=== PATIENT | male | born 1990 | race Caucasian/White ===

== ENCOUNTER 2016-11-15 11:11 | Inpatient (IN) | payer OTHER ==
[2016-11-15 16:40] VITALS: BMI 24.5
--- NOTE | 2016-11-15 16:40 | HP ---
COWS - Scale Resting Pulse: 2= [place] 101-120 Sweatin=Flushed/Facial Moisture Restless Observation: 3= Extraneous Movement Pupil Size: 0= Normal to Room Light Bone or Joint Aches: 2= Severe Diffuse Aches Runny Nose/ Eye Tearin= Nasal Congestion GI Upset > 30mins: 2= Nausea/Diarrhea Tremor Observation: 2= Slight Tremor Visible Yawning Observation: 0= None Anxiety or Irritability: 2=Irritable/Anxious Goose Flesh Skin: 0=Smooth Skin COWS Score: 16 Admission [facility] Chief Complaint: withdrawal sx Allergies/Adverse Reactions: Allergies Allergy/AdvReac Type Severity Reaction Status Date / Time shellfish derived Allergy Severe Difficulty Verified 11/15/16 16:30 Breathing History of Present Illness: 26 YEARS OLD MALE WITH LONG HISTORY OF HEROIN NICOTINE DEPENDENCE, DENIES MEDICAL ISSUE HAS ANXIETY IS ADMITTED TO DETOX Exam Limitations: No Limitations - Ebola screening Have you traveled outside of the country in the last 21 days: No Have you had contact with anyone from an Ebola affected area: No Have you been sick,other than usual withdrawal symptoms: No Do you have a fever: No - Review of Systems Constitutional: Chills, Loss of Appetite, Changes in sleep, Unexplained wgt Loss EENT: reports: No Symptoms Reported Respiratory: reports: No Symptoms reported Cardiac: reports: Palpitations GI: reports: Diarrhea, Nausea, Poor Appetite, Poor Fluid Intake, Vomiting, Abdominal cramping : reports: No Symptoms Reported Musculoskeletal: reports: Back Pain, Joint Pain, Muscle Pain, Neck Pain Integumentary: reports: No Symptoms Reported Neuro: reports: Tremors Endocrine: reports: No Symptoms Reported Hematology: reports: No Symptoms Reported Psychiatric: reports: Judgement Intact, Orientated x3, Anxious Other Systems: Reviewed and Negative Patient History - Patient Medical History Hx Anemia: No Hx Asthma: No Hx Chronic Obstructive Pulmonary Disease (COPD): No Hx Cancer: No Hx Cardiac Disorders: No Hx Hypertension: No Hx Hypercholesterolemia: No Hx Pacemaker: No HX Cerebrovascular Accident: No Hx Seizures: No Hx Dementia: No Hx Diabetes: No Hx Gastrointestinal Disorders: No Hx Liver Disease: No Hx Genitourinary Disorders: No Hx Sexually Transmitted Disorders: No Hx Renal Disease (ESRD): No Hx Thyroid Disease: No Hx Human Immunodeficiency Virus (HIV): No Hx Hepatitis C: No Hx Depression: Yes Hx Suicide Attempt: No Hx Bipolar Disorder: No Hx Schizophrenia: No - Patient Surgical History Past Surgical History: Yes Hx Neurologic Surgery: No Hx Cataract Extraction: No Hx Cardiac Surgery: No Hx Lung Surgery: No Hx Breast Surgery: No Hx Breast Biopsy: No Hx Abdominal Surgery: No Hx Appendectomy: No Hx Cholecystectomy: No Hx Genitourinary Surgery: No Hx Orthopedic Surgery: Yes (Fx L forearm s/p at age 13 yrs old.) Anesthesia Reaction: No - PPD History Previous Implant?: No Documented Results: Negative w/o proof Implanted On Prior R Admission?: No PPD to be Administered?: Yes - Smoking Cessation Smoking history: Current every day smoker Have you smoked in the past 12 months: Yes Aproximately how many cigarettes per day: 10 Cigars Per Day: 0 Hx Chewing Tobacco Use: No Initiated information on smoking cessation: Yes 'Breaking Loose' booklet given: 11/15/16 - Substance & Tx. History Hx Alcohol Use: No Hx Substance Use: Yes Substance Use Type: Heroin, Marijuana, Opiates, Tranquilizers - Substances Abused Heroin Route: Inhalation Frequency: Daily Amount used: 6 bags Age of first use: 25 Date of Last Use: 11/15/16 Marijuana/Hashish Route: Smoking Frequency: Daily Amount used: 1 joint Age of first use: 17 Date of Last Use: 11/13/16 Family Disease History - Family Disease History Family Disease History: Diabetes: Mother, Heart Disease: Mother, Other: Father ( NO CONTACT) Admission Physical Exam B[facility] - Vital Signs Vital Signs: Vital Signs - 24 hr 11/15/16 11:30 Temperature 97.4 F L Pulse Rate 115 H Respiratory 20 Rate Blood Pressure 155/94 - Physical General Appearance: Yes: Appropriately Dressed, Mild Distress, Thin, Tremorous, Irritable, Sweating, Anxious HEENTM: Yes: Hearing grossly Normal, Normal ENT Inspection, Normocephalic, Normal Voice Respiratory: Yes: Chest Non-Tender, Lungs Clear, Normal Breath Sounds, No Respiratory Distress, No Accessory Muscle Use Neck: Yes: Supple, Trachea in good position Breast: Yes: Breasts Symetrical Cardiology: Yes: Regular Rhythm, S1, S2, Tachycardia Abdominal: Yes: Non Tender, Soft, Increased Bowel Sounds Genitourinary: Yes: Within Normal Limits Back: Yes: Normal Inspection Musculoskeletal: Yes: full range of Motion, Gait Steady, Muscle Pain Extremities: Yes: Normal Inspection, Normal Range of Motion, Non-Tender, Tremors Neurological: Yes: Fully Oriented, Alert, Motor Strength 5/5, Normal Response, Depressed Affect Integumentary: Yes: Warm, Clammy Lymphatic: Yes: Within Normal Limits - Diagnostic (1) Opioid dependence with withdrawal Current Visit: Yes Status: Acute (2) Anxiety Current Visit: Yes Status: Suspected (3) Weight loss Current Visit: Yes Status: Acute (4) Nicotine dependence Current Visit: Yes Status: Acute Qualifiers: Nicotine product type: cigarettes Substance use status: uncomplicated Qualified Code(s): F17.210 - Nicotine dependence, cigarettes, uncomplicated Cleared for Admission S - Detox or Rehab [facility] Level of Care: Medically Managed Detox Regimen/Protocol: Methadone S Breath Alcohol Content Breath Alcohol Content: 0 Vital Signs - Vital Signs Vital Signs Refused: No Temperature: 94.4 F Temperature Source: Oral Pulse Rate: 115 Respiratory Rate: 20 Blood Pressure: 155/94 BP Location: Left Arm Blood Pressure Position: Sitting - Height Height: 5 ft 4 in - Weight Weight: 143 lb Weight Measurement Method: Standing Scale Body Mass Index (BMI): 24.5 - Bowel Function Bowel Movement: Yes Urine Drug Screen - Control Is Test Valid: Yes - Results Drug Screen Negative: No Urine Drug Screen Results: THC-Marijuana, OPI-Opiates, BZO-Benzodiazepines, TCA- Tricyclic Antidepress, OXY-Oxycodone
[2016-11-15] MEDS ORDERED: P-EPHED 60MG/TRIPROLIDI 2.5MG TABLET PO PRN (16:45)
[2016-11-15] MEDS ORDERED: diphenhydrAMINE HCL 50 MG CAPSULE PO PRN (16:45)
[2016-11-15] MEDS ORDERED: MAGNESIUM HYDROX 2400MG/30ML ORAL SUSPENSION 30 ML CUP PO PRN (16:45)
[2016-11-15] MEDS ORDERED: IBUPROFEN 400 MG TABLET (FP) PO PRN (16:45)
[2016-11-15] MEDS ORDERED: ACETAMINOPHEN 325 MG TABLET (FP) PO PRN (16:45)
[2016-11-15] MEDS ORDERED: MAG HYDROX/AL HYDROX/SIMETH 30 ML UNIT-DOSE CUP PO PRN (16:45)
[2016-11-15] MEDS ORDERED: guaiFENesin/D-METHORPHAN HB 10 ML UNIT-DOSE CUPS PO PRN (16:45)
[2016-11-15] MEDS ORDERED: MENTHOL/PHENOL 1 EACH UD MM PRN (16:45)
[2016-11-15] MEDS ORDERED: NICOTINE POLACRILEX 2 MG GUM BC PRN (16:45)
[2016-11-15] MEDS ORDERED: MAGNESIUM CITRATE 300 ML BOTTLE PO PRN (16:45)
[2016-11-15] MEDS ORDERED: LOPERAMIDE HCL 2 MG CAPSULE PO PRN (16:45)
[2016-11-15] MEDS ORDERED: cloNIDine HCL 0.1 MG TABLET PO PRN (16:48)
[2016-11-15] MEDS ORDERED: METHADONE HCL 10 MG TABLET (FOR DETOX USE ONLY) PO ONE ×2 (17:00→23:00)
[2016-11-15] MEDS: diazePAM 5 MG TABLET PO PRN ×2 (17:55→22:14)
[2016-11-15] MEDS: THIAMINE HCL 100 MG TABLET (FP) PO SCH (22:14)
[2016-11-16] MEDS: diazePAM 5 MG TABLET PO PRN ×5 (03:29→21:45)
[2016-11-16] MEDS ORDERED: METHADONE HCL 10 MG TABLET (FOR DETOX USE ONLY) PO ONE (10:00)
[2016-11-16] MEDS: PRENATAL VITAMINS W/ FOLIC ACID TABLET (FP) PO SCH (10:08)
[2016-11-16] MEDS: NICOTINE 14 MG/24 HOURS TOPICAL PATCH TD SCH (10:08)
[2016-11-16 10:38] LABS: URINE APPEARANCE SLCLOUDY; URINE BILIRUBIN NEGATIVE (NEGATIVE); URINE BLOOD NEGATIVE (NEGATIVE); URINE COLOR LTYELLOW; URINE GLUCOSE (UA) NEGATIVE (NEGATIVE); URINE KETONE NEGATIVE (NEGATIVE); URINE LEUK ESTERASE NEGATIVE (NEGATIVE); URINE NITRITE NEGATIVE (NEGATIVE); URINE PROTEIN NEGATIVE (NEGATIVE); URINE UROBILINOGEN 2.0 E.U/dl E.U./dl (0.2-1.0)
[2016-11-16 10:39] LABS: MCH 28.9 pg (25.7-33.7); MCHC 33.3 g/dl (32.0-35.9); MEAN CELL VOLUME 86.7 fl (80-96); MEAN PLT VOLUME 8.7 fl (7.5-11.1); PLATELET COUNT 220 K/MM3 (134-434); RDW 13.1 % (11.9-15.9); WHITE BLOOD COUNT 7.6 K/mm3 (4.0-10.0)
[2016-11-16 10:49] LABS: ALBUMIN 4.4 g/dl (3.4-5.0)
[2016-11-16 10:55] LABS: ALK PHOS 87 U/L (45-117); ANION GAP 10 (8-16); BILIRUBIN,TOTAL 0.7 mg/dL (0.2-1.0); CALCIUM 9.3 mg/dL (8.5-10.1); CO2 27 mmol/L (21-32); CREATININE 1.1 mg/dL (0.7-1.3); GLUCOSE,RANDOM 152 mg/dL (74-106); SGOT/AST 12 U/L (15-37); SGPT/ALT 17 U/L (12-78); TOT PROT 7.9 g/dl (6.4-8.2)
--- NOTE | 2016-11-16 11:49 | CONSULT ---
[facility] Psychiatric Consult - Data Date of interview: 11/16/16 Admission source: [facility] Identifying data: First admission to [facility] for this 26 y/o male seeking detox treatment on for heroin and marijuana dependence.Patient is single,a father of one,domiciled and employed. Substance Abuse History: - Smoking Cessation. Smoking history: Current every day smoker. Have you smoked in the past 12 months: Yes. Aproximately how many cigarettes per day: 10. Cigars Per Day: 0. Hx Chewing Tobacco Use: No. Initiated information on smoking cessation: Yes. 'Breaking Loose' booklet given : 11/15/16. - Substance & Tx. History. Hx Alcohol Use: No. Hx Substance Use: Yes. Substance Use Type: Heroin, Marijuana, Opiates, Tranquilizers. - Substances Abused. Heroin. Route: Inhalation. Frequency: Daily. Amount used: 6 bags. Age of first use: 25. Date of Last Use: 11/15/16. Marijuana/ Hashish. Route: Smoking. Frequency: Daily. Amount used: 1 joint. Age of first use: 17. Date of Last Use: 11/13/16. Patient confirmed. Medical History: Patient endorses good general health. Psychiatric History: Patient denies. Physical/Sexual Abuse/Trauma History: Patient denies. Additional Comment: Urine Drug Screen Results: THC-Marijuana, OPI-Opiates, BZO- Benzodiazepines, TCA-Tricyclic Antidepress, OXY-Oxycodone Mental Status Exam - Mental Status Exam Alert and Oriented to: Time, Place, Person Cognitive Function: Good Patient Appearance: Well Groomed Mood: Nervous, Hopeful Affect: Appropriate, Normal Range Patient Behavior: Fatigued, Appropriate, Cooperative Speech Pattern: Clear, Appropriate Voice Loudness: Normal Thought Process: Goal Oriented Thought Disorder: Not Present Hallucinations: Denies Suicidal Ideation: Denies Homicidal Ideation: Denies Insight/Judgement: Fair Sleep: Poorly, Difficulty falling asleep (patient is requesting zolpidem) Appetite: Good Muscle strength/Tone: Normal Gait/Station: Normal Psychiatric Findings - Problem List (Wideman 1, 2,3) (1) Opioid dependence with withdrawal Current Visit: Yes Status: Acute (2) Nicotine dependence Current Visit: Yes Status: Acute Qualifiers: Nicotine product type: cigarettes Substance use status: uncomplicated Qualified Code(s): F17.210 - Nicotine dependence, cigarettes, uncomplicated (3) Cannabis dependence Current Visit: Yes Status: Acute (4) Insomnia Current Visit: Yes Status: Acute - Initial Treatment Plan Initial Treatment Plan: Psychoeducation.Detoxification.Zolpidem 10 mg po hs prn (only for duration of detox course).Patient is made aware of the risk of parasomnias.He agrees with careplan.Observation.
[2016-11-16] MEDS ORDERED: ZOLPIDEM TARTRATE 5 MG TABLET PO PRN (11:55)
--- NOTE | 2016-11-16 19:42 | PN ---
S Progress Note Note: patient did not want to complete treatment,signed release ama,did not want to wait
--- NOTE | 2016-11-16 19:45 | DS ---
[facility] Detox Discharge Summary Admission Date: 11/15/16 Discharge Date: 11/16/16 - History Present History: Cannabis Dependence, Opioid Dependence Additional Comments: patient did not want to comlete treatment,signed release ama,did not want to wait Pertinent Past History: nicotine dependence - Physical Exam Results Vital Signs: Vital Signs Temperature 99.2 F 11/16/16 14:51 Pulse Rate 70 11/16/16 14:51 Respiratory Rate 18 11/16/16 14:51 Blood Pressure 133/91 11/16/16 14:51 O2 Sat by Pulse Oximetry (%) Pertinent Admission Physical Exam Findings: withdrawal symptom - Medication Discharge Medications: Ambulatory Orders NK [No Known Home Medication] 11/15/16 - AMA Did Patient Leave Against Medical Advice: Yes
[2016-11-16] MEDS: THIAMINE HCL 100 MG TABLET (FP) PO SCH (21:45)
[2016-11-17] MEDS: diazePAM 5 MG TABLET PO PRN (05:08)
[2016-11-17] MEDS ORDERED: METHADONE HCL 5 MG TABLET (FOR DETOX USE ONLY) PO ONE (10:00)
[2016-11-17] MEDS: PRENATAL VITAMINS W/ FOLIC ACID TABLET (FP) PO SCH (10:09)
[2016-11-17] MEDS: NICOTINE 14 MG/24 HOURS TOPICAL PATCH TD SCH (10:09)
[2016-11-17 11:02] VITALS: BP 128/79; PULSE 73; TEMP 96.8
--- NOTE | 2016-11-17 12:34 | PN ---
[facility]I Progress Note Note: ADDENDUM PATIENT CHANGED HIS MIND TO STAY AFTER SIGNED RELEASE AMCatrachito YESTERDAY ON 11/16/16
--- NOTE | 2016-11-17 12:48 | DS ---
[facility] Detox Discharge Summary Admission Date: 11/15/16 Discharge Date: 11/17/16 - History Present History: Cannabis Dependence, Opioid Dependence Pertinent Past History: Denies - Physical Exam Results Vital Signs: Vital Signs Temperature 96.8 F L 11/17/16 11:02 Pulse Rate 73 11/17/16 11:02 Respiratory Rate 20 11/17/16 11:02 Blood Pressure 128/79 11/17/16 11:02 O2 Sat by Pulse Oximetry (%) Pertinent Admission Physical Exam Findings: Withdrawal symptoms Laboratory Tests 11/16/16 11/16/16 11/16/16 06:00 06:00 06:00 WBC 7.6 RBC 4.96 Hgb 14.3 Hct 43.0 MCV 86.7 MCHC 33.3 RDW 13.1 Plt Count 220 MPV 8.7 Sodium 140 Potassium 4.0 Chloride 103 Carbon Dioxide 27 Anion Gap 10 BUN 23 H Creatinine 1.1 Creat Clearance w eGFR > 60 Random Glucose 152 H Calcium 9.3 Total Bilirubin 0.7 AST 12 L ALT 17 Alkaline Phosphatase 87 Total Protein 7.9 Albumin 4.4 Urine Color Urine Appearance Urine pH Ur Specific [place] Urine Protein Urine Glucose (UA) Urine Ketones Urine Blood Urine Nitrite Urine Bilirubin Urine Urobilinogen Ur Leukocyte Esterase RPR Titer Nonreactive 11/16/16 07:30 WBC RBC Hgb Hct MCV MCHC RDW Plt Count MPV Sodium Potassium Chloride Carbon Dioxide Anion Gap BUN Creatinine Creat Clearance w eGFR Random Glucose Calcium Total Bilirubin AST ALT Alkaline Phosphatase Total Protein Albumin Urine Color Ltyellow Urine Appearance Slcloudy Urine pH 7.0 Ur Specific [place] 1.015 Urine Protein Negative Urine Glucose (UA) Negative Urine Ketones Negative Urine Blood Negative Urine Nitrite Negative Urine Bilirubin Negative Urine Urobilinogen 2.0 e.u/dl Ur Leukocyte Esterase Negative RPR Titer Labs noted: azotemia and hyperglycemia noted - Medication Discharge Medications: Ambulatory Orders NK [No Known Home Medication] 11/15/16 - Diagnosis (1) Cannabis dependence Status: Acute (2) Opioid dependence with withdrawal Status: Acute - AMA Did Patient Leave Against Medical Advice: Yes (refuse workup for hyperglycemia, encourage to drink more water b/c azotemia)
[2016-11-18] MEDS ORDERED: METHADONE HCL 5 MG TABLET (FOR DETOX USE ONLY) PO ONE (10:00)
[2016-11-19] MEDS ORDERED: METHADONE HCL 10 MG TABLET (FOR DETOX USE ONLY) PO ONE (10:00)
[2016-11-20] MEDS ORDERED: METHADONE HCL 5 MG TABLET (FOR DETOX USE ONLY) PO ONE (06:00)
--- NOTE | 2016-11-20 09:48 | EKG ---
Test Reason : Blood Pressure : / mmHG Vent. Rate : 064 BPM Atrial Rate : 064 BPM P-R Int : 138 ms QRS Dur : 096 ms QT Int : 408 ms P-R-T Axes : 000 070 051 degrees QTc Int : 420 ms NORMAL SINUS RHYTHM RSR' OR QR PATTERN IN V1 SUGGESTS RIGHT VENTRICULAR CONDUCTION DELAY BORDERLINE ECG NO PREVIOUS ECGS AVAILABLE Confirmed by JEAN CARLOS FERNANDEZ, NEDRA ([id number]) on 11/20/2016 9:47:59 AM Referred By: Mike Lieberman Confirmed By:NEDRA EVANGELISTA MD
== END 2016-11-17 10:55 | disposition left against medical advice (07) | DRG 770 ==
LOC: YASAS 11:11 → Y3N 16:42
PROVIDERS: ADMIT Internal Medicine; ATTEND Internal Medicine
PROC: HZ2ZZZZ Detoxification Services for Substance Abuse Treatment (ICD-10-PCS; principal; 2016-11-15)
DX: F11.23 Opioid dependence with withdrawal (principal); F12.20 Cannabis dependence, uncomplicated; F17.210 Nicotine dependence, cigarettes, uncomplicated; F41.9 Anxiety disorder, unspecified; G47.00 Insomnia, unspecified; R00.0 Tachycardia, unspecified; Z87.898 Personal history of other specified conditions
CPT/HCPCS: 36415; 80053; 81003; 85027; 86593; 86803; 93005; 93010

== ENCOUNTER 2017-01-26 10:27 | Inpatient (IN) | payer OTHER ==
[2017-01-26 10:56] VITALS: BMI 23.4
--- NOTE | 2017-01-26 11:07 | HP ---
COWS - Scale Resting Pulse: 0= [place] 80 or Below Sweatin= Chills/Flushing Restless Observation: 1= Difficult to Sit Still Pupil Size: 1= Pupils >than Normal Bone or Joint Aches: 2= Severe Diffuse Aches Runny Nose/ Eye Tearin= Runny Nose/Eyes GI Upset > 30mins: 3= Vomiting/Diarrhea Tremor Observation: 1= Tremor [place], Not Seen Yawning Observation: 1= 1-2x During Session Anxiety or Irritability: 4=Extreme Anxiety Goose Flesh Skin: 3=Piloerection COWS Score: 19 Admission ROS BHS - HPI Chief Complaint: "I want to better myself. I recently lost my job because of my drug use." Pt. is here to Detox from Heroin. Allergies/Adverse Reactions: Allergies Allergy/AdvReac Type Severity Reaction Status Date / Time shellfish derived Allergy Severe Difficulty Verified 11/15/16 16:30 Breathing No Known Drug Allergies Allergy Verified 11/15/16 17:05 History of Present Illness: Pt. is a 26 YO male here to Detox from Heroin. Pt. has had 1 previous Detox admission at [facility] approx. 3 months ago. Exam Limitations: No Limitations - Ebola screening Have you traveled outside of the country in the last 21 days: No Have you had contact with anyone from an Ebola affected area: No Have you been sick,other than usual withdrawal symptoms: No Do you have a fever: No - Review of Systems Constitutional: Diaphoresis, Loss of Appetite, Malaise, Night Sweats, Changes in sleep, Unexplained wgt Loss (Lost Approx. 12 lbs. over the last 4-5 months.) EENT: reports: Blurred Vision Respiratory: reports: No Symptoms reported Cardiac: reports: Palpitations GI: reports: Constipated, Diarrhea, Nausea, Poor Appetite, Vomiting, Abdominal cramping : reports: No Symptoms Reported Musculoskeletal: reports: Back Pain, Muscle Pain, Neck Pain, Joint Stiffness Integumentary: reports: No Symptoms Reported Neuro: reports: Headache, Tremors Endocrine: reports: No Symptoms Reported Hematology: reports: No Symptoms Reported Psychiatric: reports: Judgement Intact, Mood/Affect Appropiate, Orientated x3, Anxious, Depressed Other Systems: Reviewed and Negative Patient History - Patient Medical History Hx Anemia: No Hx Asthma: No Hx Chronic Obstructive Pulmonary Disease (COPD): No Hx Cancer: No Hx Cardiac Disorders: No Hx Congestive Heart Failure: No Hx Hypertension: No Hx Hypercholesterolemia: No Hx Pacemaker: No HX Cerebrovascular Accident: No Hx Seizures: No Hx Dementia: No Hx Diabetes: No Hx Gastrointestinal Disorders: No Hx Liver Disease: No Hx Genitourinary Disorders: No Hx Sexually Transmitted Disorders: No Hx Renal Disease (ESRD): No Hx Thyroid Disease: No Hx Human Immunodeficiency Virus (HIV): No (Last Tested: Approx. 5 years ago: NEGATIVE.) Hx Hepatitis C: No (Last Tested: Approx. 5 years ago: NEGATIVE.) Hx Depression: Yes (No Previous Treatment.) Hx Suicide Attempt: No (PATIENT DENIES CURRENT SI / HI.) Hx Bipolar Disorder: No Hx Schizophrenia: No - Patient Surgical History Past Surgical History: Yes Hx Neurologic Surgery: No Hx Cataract Extraction: No Hx Cardiac Surgery: No Hx Lung Surgery: No Hx Breast Surgery: No Hx Breast Biopsy: No Hx Abdominal Surgery: No Hx Appendectomy: No Hx Cholecystectomy: No Hx Genitourinary Surgery: No Hx Orthopedic Surgery: Yes (Fx L forearm s/p at age 13 yrs old.) Anesthesia Reaction: No - PPD History Previous Implant?: Yes Documented Results: Negative w/o proof Implanted On Prior [facility] Admission?: Yes Date: 11/17/16 PPD to be Administered?: Yes - Reproductive History Patient is a Female of Child Bearing Age (11 -55 yrs old): No (PATIENT IS MALE.) - Smoking Cessation Smoking history: Current every day smoker Have you smoked in the past 12 months: Yes Aproximately how many cigarettes per day: 10 Cigars Per Day: 0 Hx Chewing Tobacco Use: No Initiated information on smoking cessation: Yes 'Breaking Loose' booklet given: 01/26/17 (GIVEN ON UNIT.) - Substance & Tx. History Hx Alcohol Use: No Hx Substance Use: Yes Substance Use Type: Heroin, Marijuana, Tranquilizers Hx Substance Use Treatment: Yes (1 Previous Detox admission at [facility].) - Substances Abused Heroin Route: Inhalation Frequency: Daily Amount used: 1 Bundle. Age of first use: 22 Date of Last Use: 01/25/17 Alprazolam (Xanax) Route: Oral Frequency: Daily Amount used: 1 MG Age of first use: 26 (Using for approx. 1 month.) Date of Last Use: 01/24/17 Marijuana/Hashish Route: Smoking Frequency: 3-6 times per week Amount used: 2 Joints. Age of first use: 21 Date of Last Use: 01/22/17 Family Disease History - Family Disease History Family Disease History: Diabetes: Mother, Heart Disease: Mother, Other: Father ( NO CONTACT) Admission Physical Exam [facility] - Vital Signs Vital Signs: Vital Signs - 24 hr 01/26/17 10:54 Temperature 97.7 F Pulse Rate 68 Respiratory 18 Rate Blood Pressure 128/75 - Physical General Appearance: Yes: Nourished, Appropriately Dressed, Moderate Distress, Anxious HEENTM: Yes: Hearing grossly Normal, Normocephalic, Normal Voice, DAVON, Pharynx Normal Respiratory: Yes: Chest Non-Tender, Lungs Clear, No Respiratory Distress Neck: Yes: No masses,lesions,Nodules, Supple, Trachea in good position Breast: Yes: Breast Exam Deferred Cardiology: Yes: Regular Rhythm, Regular Rate, S1, S2 Abdominal: Yes: Normal Bowel Sounds, Non Tender, Flat, Soft Genitourinary: Yes: Within Normal Limits Back: Yes: Decreased Range of Motion Musculoskeletal: Yes: Gait Steady, Joint Stiffness, Muscle Pain Extremities: Yes: Tremors Neurological: Yes: Fully Oriented, Alert, Normal Mood/Affect, Normal Response Integumentary: Yes: Normal Color, Dry, Warm Lymphatic: Yes: Within Normal Limits - Diagnostic (1) Cannabis dependence Current Visit: Yes Status: Acute (2) Nicotine dependence Current Visit: Yes Status: Chronic Qualifiers: Nicotine product type: cigarettes Substance use status: uncomplicated Qualified Code(s): F17.210 - Nicotine dependence, cigarettes, uncomplicated (3) Opioid dependence with withdrawal Current Visit: Yes Status: Acute (4) Anxiety Current Visit: Yes Status: Acute (5) Sedative/hypnotic withdrawal without complication Current Visit: Yes Status: Acute Cleared for Admission [facility] - Detox or Rehab [facility] Level of Care: Medically Managed (PATIENT ADVISED TO FOLLOW-UP WITH [facility] DEVELOPER / REHAB MEDICAL PROVIDER FOR GENERAL MEDICAL ASSESSMENT AFTER DISCHARGE FROM DETOX.) Detox Regimen/Protocol: Methadone [facility] Breath Alcohol Content Breath Alcohol Content: 0 Urine Drug Screen - Results Urine Drug Screen Results: THC-Marijuana, OPI-Opiates, BZO-Benzodiazepines
[2017-01-26] MEDS ORDERED: MAG HYDROX/AL HYDROX/SIMETH 30 ML UNIT-DOSE CUP PO PRN (11:45)
[2017-01-26] MEDS ORDERED: ACETAMINOPHEN 325 MG TABLET (FP) PO PRN (11:45)
[2017-01-26] MEDS ORDERED: MAGNESIUM HYDROX 2400MG/30ML ORAL SUSPENSION 30 ML CUP PO PRN (11:45)
[2017-01-26] MEDS ORDERED: METHADONE HCL 10 MG TABLET (FOR DETOX USE ONLY) PO ONE ×2 (11:45→23:00)
[2017-01-26] MEDS ORDERED: MENTHOL/PHENOL 1 EACH UD MM PRN (11:45)
[2017-01-26] MEDS ORDERED: LOPERAMIDE HCL 2 MG CAPSULE PO PRN (11:45)
[2017-01-26] MEDS ORDERED: guaiFENesin/D-METHORPHAN HB 10 ML UNIT-DOSE CUPS PO PRN (11:45)
[2017-01-26] MEDS ORDERED: P-EPHED 60MG/TRIPROLIDI 2.5MG TABLET PO PRN (11:45)
[2017-01-26] MEDS ORDERED: MAGNESIUM CITRATE 300 ML BOTTLE PO PRN (11:45)
[2017-01-26] MEDS ORDERED: IBUPROFEN 400 MG TABLET (FP) PO PRN (11:45)
[2017-01-26] MEDS: diazePAM 5 MG TABLET PO PRN ×2 (13:09→19:24)
[2017-01-26] MEDS: NICOTINE 21 MG/24 HOURS TOPICAL PATCH TD SCH (13:13)
[2017-01-26 17:36] LABS: URINE APPEARANCE CLEAR; URINE BILIRUBIN NEGATIVE (NEGATIVE); URINE BLOOD NEGATIVE (NEGATIVE); URINE COLOR YELLOW; URINE GLUCOSE (UA) NEGATIVE (NEGATIVE); URINE KETONE NEGATIVE (NEGATIVE); URINE LEUK ESTERASE NEGATIVE (NEGATIVE); URINE NITRITE NEGATIVE (NEGATIVE); URINE PROTEIN NEGATIVE (NEGATIVE); URINE UROBILINOGEN NEGATIVE E.U./dl (0.2-1.0)
[2017-01-26] MEDS: THIAMINE HCL 100 MG TABLET (FP) PO SCH (22:24)
[2017-01-26] MEDS: diphenhydrAMINE HCL 50 MG CAPSULE PO PRN (22:25)
[2017-01-27] MEDS: diazePAM 5 MG TABLET PO PRN ×4 (05:26→19:16)
[2017-01-27] MEDS ORDERED: METHADONE HCL 10 MG TABLET (FOR DETOX USE ONLY) PO ONE (10:00)
[2017-01-27 10:05] LABS: MCH 28.9 pg (25.7-33.7); MCHC 33.1 g/dl (32.0-35.9); MEAN CELL VOLUME 87.4 fl (80-96); MEAN PLT VOLUME 8.3 fl (7.5-11.1); PLATELET COUNT 227 K/MM3 (134-434); RDW 13.4 % (11.9-15.9); WHITE BLOOD COUNT 8.9 K/mm3 (4.0-10.0)
--- NOTE | 2017-01-27 10:36 | PN ---
[facility] COWS - Scale Resting Pulse: 0= [place] 80 or Below Sweatin=Flushed/Facial Moisture Restless Observation: 1= Difficult to Sit Still Pupil Size: 0= Normal to Room Light Bone or Joint Aches: 1= Mild Discomfort Runny Nose/ Eye Tearin= Runny Nose/Eyes GI Upset > 30mins: 2= Nausea/Diarrhea Tremor Observation of Outstretched Hands: 2= Slight Tremor Visible Yawning Observation: 1= 1-2x During Session Anxiety or Irritability: 2=Irritable/Anxious Goose Flesh Skin: 0=Smooth Skin COWS Score: 13 BHS Progress Note (SOAP) Subjective: Anxiety,sweating,muscle aches,restless Objective: 01/27/17 10:35 Vital Signs - 8 hr 01/27/17 01/27/17 01/27/17 03:40 06:30 10:00 Temperature 97.2 F L 96.8 F L Pulse Rate 58 L 71 Respiratory 18 18 18 Rate Blood Pressure 124/90 129/85 Laboratory Last Values WBC 8.9 K/mm3 (4.0-10.0) 01/27/17 07:40 Corrected WBC (auto) 8.90 K/mm3 01/27/17 07:40 RBC 4.79 M/mm3 (4.00-5.60) 01/27/17 07:40 Hgb 13.8 GM/dL (11.7-16.9) 01/27/17 07:40 Hct 41.9 % (35.4-49) 01/27/17 07:40 MCV 87.4 fl (80-96) 01/27/17 07:40 MCHC 33.1 g/dl (32.0-35.9) 01/27/17 07:40 RDW 13.4 % (11.9-15.9) 01/27/17 07:40 Plt Count 227 K/MM3 (134-434) 01/27/17 07:40 MPV 8.3 fl (7.5-11.1) 01/27/17 07:40 Neutrophils % Cancelled 01/27/17 07:40 Lymphocytes % Cancelled 01/27/17 07:40 Monocytes % Cancelled 01/27/17 07:40 Eosinophils % Cancelled 01/27/17 07:40 Basophils % Cancelled 01/27/17 07:40 Band Neutrophils Cancelled 01/27/17 07:40 Metamyelocytes Cancelled 01/27/17 07:40 Myelocytes Cancelled 01/27/17 07:40 Promyelocytes Cancelled 01/27/17 07:40 Nucleated RBCs Cancelled 01/27/17 07:40 Hypersegmented Neuts Cancelled 01/27/17 07:40 Plasmacytoid Lymphs Cancelled 01/27/17 07:40 Reactive Lymphocytes Cancelled 01/27/17 07:40 Blast Cells Cancelled 01/27/17 07:40 Plasma Cells Cancelled 01/27/17 07:40 Smudge Cells Cancelled 01/27/17 07:40 Other Cell Type Cancelled 01/27/17 07:40 Toxic Granulation Cancelled 01/27/17 07:40 Dohle Bodies Cancelled 01/27/17 07:40 Ewa Rods Cancelled 01/27/17 07:40 Polychromasia Cancelled 01/27/17 07:40 Hypochromic-Microcytic Cancelled 01/27/17 07:40 Poikilocytosis Cancelled 01/27/17 07:40 Basophilic Stippling Cancelled 01/27/17 07:40 Anisocytosis Cancelled 01/27/17 07:40 Microcytosis Cancelled 01/27/17 07:40 Macrocytosis Cancelled 01/27/17 07:40 Spherocytes Cancelled 01/27/17 07:40 Siderocytes Cancelled 01/27/17 07:40 Sickle Cells Cancelled 01/27/17 07:40 Target Cells Cancelled 01/27/17 07:40 Tear Drop Cells Cancelled 01/27/17 07:40 Ovalocytes Cancelled 01/27/17 07:40 Stomatocytes Cancelled 01/27/17 07:40 Helmet Cells Cancelled 01/27/17 07:40 Gomez-C[place] Bodies Cancelled 01/27/17 07:40 [place] Rings Cancelled 01/27/17 07:40 [place] Cells Cancelled 01/27/17 07:40 Acanthocytes (Spur) Cancelled 01/27/17 07:40 Rouleaux Cancelled 01/27/17 07:40 Fragmented RBCs Cancelled 01/27/17 07:40 Schistocytes Cancelled 01/27/17 07:40 Morphology Comment Cancelled 01/27/17 07:40 Urine Color Yellow 01/26/17 Unknown Urine Appearance Clear 01/26/17 Unknown Urine pH 5.0 (5.0-8.0) D 01/26/17 Unknown Ur Specific [place] 1.025 (1.001-1.035) 01/26/17 Unknown Urine Protein Negative (NEGATIVE) 01/26/17 Unknown Urine Glucose (UA) Negative (NEGATIVE) 01/26/17 Unknown Urine Ketones Negative (NEGATIVE) 01/26/17 Unknown Urine Blood Negative (NEGATIVE) 01/26/17 Unknown Urine Nitrite Negative (NEGATIVE) 01/26/17 Unknown Urine Bilirubin Negative (NEGATIVE) 01/26/17 Unknown Urine Urobilinogen Negative E.U./dl (0.2-1.0) 01/26/17 Unknown Ur Leukocyte Esterase Negative (NEGATIVE) 01/26/17 Unknown Fluid Tot Cell Count Cancelled 01/27/17 07:40 labs noted Assessment: 01/27/17 10:35 Withdrawal sx. Plan: Continue detox
[2017-01-27 10:37] LABS: ALBUMIN 3.7 g/dl (3.4-5.0); ANION GAP 8 (8-16); CALCIUM 8.8 mg/dL (8.5-10.1); CO2 29 mmol/L (21-32); CREATININE 0.8 mg/dL (0.7-1.3); GLUCOSE,RANDOM 96 mg/dL (74-106); SGOT/AST 19 U/L (15-37); SGPT/ALT 22 U/L (12-78); TOT PROT 6.5 g/dl (6.4-8.2)
[2017-01-27 10:41] LABS: ALK PHOS 81 U/L (45-117); BILIRUBIN,TOTAL 0.2 mg/dL (0.2-1.0)
[2017-01-27] MEDS: PRENATAL VITAMINS W/ FOLIC ACID TABLET (FP) PO SCH (10:45)
[2017-01-27] MEDS: NICOTINE 21 MG/24 HOURS TOPICAL PATCH TD SCH (10:45)
[2017-01-27 11:48] LABS: HIV 1 AGp24 NEGATIVE
[2017-01-27 11:49] LABS: HIV 1 & 2 AB NEGATIVE
[2017-01-27] MEDS: CYCLOBENZAPRINE HCL 10 MG TABLET (FP) PO SCH ×2 (13:12→22:50)
[2017-01-27] MEDS: THIAMINE HCL 100 MG TABLET (FP) PO SCH ×2 (22:30→22:50)
[2017-01-27] MEDS: hydrOXYzine PAMOATE 50 MG CAPSULE (FP) PO PRN (22:52)
[2017-01-28] MEDS: CYCLOBENZAPRINE HCL 10 MG TABLET (FP) PO SCH ×3 (05:37→22:50)
[2017-01-28] MEDS: diazePAM 5 MG TABLET PO PRN ×4 (05:37→22:49)
[2017-01-28] MEDS ORDERED: METHADONE HCL 5 MG TABLET (FOR DETOX USE ONLY) PO ONE (10:00)
[2017-01-28] MEDS: NICOTINE 21 MG/24 HOURS TOPICAL PATCH TD SCH (10:32)
[2017-01-28] MEDS: PRENATAL VITAMINS W/ FOLIC ACID TABLET (FP) PO SCH (10:32)
--- NOTE | 2017-01-28 11:40 | PN ---
S COWS - Scale Resting Pulse: 0= [place] 80 or Below Sweatin= Chills/Flushing Restless Observation: 3= Extraneous Movement Pupil Size: 2= Moderately Dilated Bone or Joint Aches: 4=Acute Joint/Muscle Pain Runny Nose/ Eye Tearin= Nasal Congestion GI Upset > 30mins: 2= Nausea/Diarrhea Tremor Observation of Outstretched Hands: 1= Tremor [place], Not Seen Yawning Observation: 1= 1-2x During Session Anxiety or Irritability: 2=Irritable/Anxious Goose Flesh Skin: 0=Smooth Skin COWS Score: 17 S Progress Note (SOAP) Subjective: ANXIETY,IRRITABILITY,BACK ACHE,NAUSEA,SWEATS,INTERMITTENT SLEEP,"DEPRESSION/ ANXIETY". Objective: 01/28/17 11:39 Vital Signs Temperature 97.2 F L 01/28/17 10:10 Pulse Rate 57 L 01/28/17 10:10 Respiratory Rate 18 01/28/17 10:10 Blood Pressure 117/62 01/28/17 10:10 O2 Sat by Pulse Oximetry (%) Laboratory Last Values WBC 8.9 K/mm3 (4.0-10.0) 01/27/17 07:40 Corrected WBC (auto) 8.90 K/mm3 01/27/17 07:40 RBC 4.79 M/mm3 (4.00-5.60) 01/27/17 07:40 Hgb 13.8 GM/dL (11.7-16.9) 01/27/17 07:40 Hct 41.9 % (35.4-49) 01/27/17 07:40 MCV 87.4 fl (80-96) 01/27/17 07:40 MCHC 33.1 g/dl (32.0-35.9) 01/27/17 07:40 RDW 13.4 % (11.9-15.9) 01/27/17 07:40 Plt Count 227 K/MM3 (134-434) 01/27/17 07:40 MPV 8.3 fl (7.5-11.1) 01/27/17 07:40 Neutrophils % Cancelled 01/27/17 07:40 Lymphocytes % Cancelled 01/27/17 07:40 Monocytes % Cancelled 01/27/17 07:40 Eosinophils % Cancelled 01/27/17 07:40 Basophils % Cancelled 01/27/17 07:40 Band Neutrophils Cancelled 01/27/17 07:40 Metamyelocytes Cancelled 01/27/17 07:40 Myelocytes Cancelled 01/27/17 07:40 Promyelocytes Cancelled 01/27/17 07:40 Nucleated RBCs Cancelled 01/27/17 07:40 Hypersegmented Neuts Cancelled 01/27/17 07:40 Plasmacytoid Lymphs Cancelled 01/27/17 07:40 Reactive Lymphocytes Cancelled 01/27/17 07:40 Blast Cells Cancelled 01/27/17 07:40 Plasma Cells Cancelled 01/27/17 07:40 Smudge Cells Cancelled 01/27/17 07:40 Other Cell Type Cancelled 01/27/17 07:40 Toxic Granulation Cancelled 01/27/17 07:40 Dohle Bodies Cancelled 01/27/17 07:40 Ewa Rods Cancelled 01/27/17 07:40 Polychromasia Cancelled 01/27/17 07:40 Hypochromic-Microcytic Cancelled 01/27/17 07:40 Poikilocytosis Cancelled 01/27/17 07:40 Basophilic Stippling Cancelled 01/27/17 07:40 Anisocytosis Cancelled 01/27/17 07:40 Microcytosis Cancelled 01/27/17 07:40 Macrocytosis Cancelled 01/27/17 07:40 Spherocytes Cancelled 01/27/17 07:40 Siderocytes Cancelled 01/27/17 07:40 Sickle Cells Cancelled 01/27/17 07:40 Target Cells Cancelled 01/27/17 07:40 Tear Drop Cells Cancelled 01/27/17 07:40 Ovalocytes Cancelled 01/27/17 07:40 Stomatocytes Cancelled 01/27/17 07:40 Helmet Cells Cancelled 01/27/17 07:40 [place] Heart Bodies Cancelled 01/27/17 07:40 [place] Rings Cancelled 01/27/17 07:40 [place] Cells Cancelled 01/27/17 07:40 Acanthocytes (Spur) Cancelled 01/27/17 07:40 Rouleaux Cancelled 01/27/17 07:40 Fragmented RBCs Cancelled 01/27/17 07:40 Schistocytes Cancelled 01/27/17 07:40 Morphology Comment Cancelled 01/27/17 07:40 Sodium 143 mmol/L (136-145) 01/27/17 07:40 Potassium 4.2 mmol/L (3.5-5.1) 01/27/17 07:40 Chloride 106 mmol/L (98-107) 01/27/17 07:40 Carbon Dioxide 29 mmol/L (21-32) 01/27/17 07:40 Anion Gap 8 (8-16) 01/27/17 07:40 BUN 14 mg/dL (7-18) D 01/27/17 07:40 Creatinine 0.8 mg/dL (0.7-1.3) D 01/27/17 07:40 Creat Clearance w eGFR > 60 (>60) 01/27/17 07:40 Random Glucose 96 mg/dL (74-106) D 01/27/17 07:40 Calcium 8.8 mg/dL (8.5-10.1) 01/27/17 07:40 Total Bilirubin 0.2 mg/dL (0.2-1.0) D 01/27/17 07:40 AST 19 U/L (15-37) D 01/27/17 07:40 ALT 22 U/L (12-78) D 01/27/17 07:40 Alkaline Phosphatase 81 U/L (45-117) 01/27/17 07:40 Total Protein 6.5 g/dl (6.4-8.2) 01/27/17 07:40 Albumin 3.7 g/dl (3.4-5.0) 01/27/17 07:40 Urine Color Yellow 01/26/17 Unknown Urine Appearance Clear 01/26/17 Unknown Urine pH 5.0 (5.0-8.0) D 01/26/17 Unknown Ur Specific [place] 1.025 (1.001-1.035) 01/26/17 Unknown Urine Protein Negative (NEGATIVE) 01/26/17 Unknown Urine Glucose (UA) Negative (NEGATIVE) 01/26/17 Unknown Urine Ketones Negative (NEGATIVE) 01/26/17 Unknown Urine Blood Negative (NEGATIVE) 01/26/17 Unknown Urine Nitrite Negative (NEGATIVE) 01/26/17 Unknown Urine Bilirubin Negative (NEGATIVE) 01/26/17 Unknown Urine Urobilinogen Negative E.U./dl (0.2-1.0) 01/26/17 Unknown Ur Leukocyte Esterase Negative (NEGATIVE) 01/26/17 Unknown Fluid Tot Cell Count Cancelled 01/27/17 07:40 RPR Titer Nonreactive (NONREACTIVE) 01/27/17 07:40 HIV 1&2 Antibody Screen Negative 01/27/17 07:45 HIV P24 Antigen Negative 01/27/17 07:45 Assessment: 01/28/17 11:39 WITHDRAWAL SX Plan: CONTINUE DETOX TO F/U WITH PSYCH MD KASPER. BOUBACAR DIRECTED FOR NAUSEA.
[2017-01-28] MEDS: ONDANSETRON *ODT* 4 MG TABLET SL PRN (12:11)
--- NOTE | 2017-01-28 16:56 | EKG ---
Test Reason : Blood Pressure : / mmHG Vent. Rate : 056 BPM Atrial Rate : 056 BPM P-R Int : 136 ms QRS Dur : 092 ms QT Int : 422 ms P-R-T Axes : 074 073 066 degrees QTc Int : 407 ms SINUS BRADYCARDIA WITH MARKED SINUS ARRHYTHMIA OTHERWISE NORMAL ECG WHEN COMPARED WITH ECG OF 26-JAN-2017 12:16, NO SIGNIFICANT CHANGE WAS FOUND Confirmed by MARTHA MCCORMICK MD ([id number]) on 01/28/2017 4:55:59 PM Referred By: Confirmed By:MARTHA MCCORMICK MD
--- NOTE | 2017-01-28 16:58 | EKG ---
Test Reason : Blood Pressure : / mmHG Vent. Rate : 049 BPM Atrial Rate : 049 BPM P-R Int : 132 ms QRS Dur : 098 ms QT Int : 446 ms P-R-T Axes : 073 064 053 degrees QTc Int : 402 ms SINUS BRADYCARDIA POSSIBLE LEFT ATRIAL ENLARGEMENT RSR' OR QR PATTERN IN V1 SUGGESTS RIGHT VENTRICULAR CONDUCTION DELAY BORDERLINE ECG WHEN COMPARED WITH ECG OF 15-NOV-2016 18:07, NO SIGNIFICANT CHANGE WAS FOUND Confirmed by MARTHA MCCORMICK MD ([id number]) on 01/28/2017 4:57:50 PM Referred By: Confirmed By:MARTHA MCCORMICK MD
[2017-01-28] MEDS: NICOTINE POLACRILEX 2 MG GUM BUC PRN (18:34)
[2017-01-28] MEDS: THIAMINE HCL 100 MG TABLET (FP) PO SCH (22:47)
[2017-01-28] MEDS: diphenhydrAMINE HCL 50 MG CAPSULE PO PRN (22:50)
[2017-01-29] MEDS: diazePAM 5 MG TABLET PO PRN (06:01)
[2017-01-29] MEDS: CYCLOBENZAPRINE HCL 10 MG TABLET (FP) PO SCH ×3 (06:01→22:58)
--- NOTE | 2017-01-29 08:46 | PN ---
[facility] Progress Note Note: Psychiatry Attending's note : Approached by patient. Complaint : insomnia. Benadryl not effective. Plan : Zolpidem 10 mg po hs prn. Patient made aware of risk of parasomnias. Mr Sanon agrees with this careplan. Otherwise benign hospital course.
[2017-01-29] MEDS ORDERED: METHADONE HCL 5 MG TABLET (FOR DETOX USE ONLY) PO ONE (10:00)
[2017-01-29] MEDS: PRENATAL VITAMINS W/ FOLIC ACID TABLET (FP) PO SCH (10:45)
[2017-01-29] MEDS: NICOTINE 21 MG/24 HOURS TOPICAL PATCH TD SCH (10:45)
[2017-01-29] MEDS: ONDANSETRON *ODT* 4 MG TABLET SL PRN (10:46)
--- NOTE | 2017-01-29 11:28 | PN ---
S Progress Note (SOAP) Subjective: ANXIETY,SWEATS,IRRITABILITY,INTERMITTENT SLEEP.BENADRYL NOT EFFECTIVE. Objective: 01/29/17 11:27 Vital Signs Temperature 96.7 F L 01/29/17 10:25 Pulse Rate 78 01/29/17 10:25 Respiratory Rate 18 01/29/17 10:25 Blood Pressure 115/76 01/29/17 10:25 O2 Sat by Pulse Oximetry (%) Laboratory Last Values WBC 8.9 K/mm3 (4.0-10.0) 01/27/17 07:40 Corrected WBC (auto) 8.90 K/mm3 01/27/17 07:40 RBC 4.79 M/mm3 (4.00-5.60) 01/27/17 07:40 Hgb 13.8 GM/dL (11.7-16.9) 01/27/17 07:40 Hct 41.9 % (35.4-49) 01/27/17 07:40 MCV 87.4 fl (80-96) 01/27/17 07:40 MCHC 33.1 g/dl (32.0-35.9) 01/27/17 07:40 RDW 13.4 % (11.9-15.9) 01/27/17 07:40 Plt Count 227 K/MM3 (134-434) 01/27/17 07:40 MPV 8.3 fl (7.5-11.1) 01/27/17 07:40 Neutrophils % Cancelled 01/27/17 07:40 Lymphocytes % Cancelled 01/27/17 07:40 Monocytes % Cancelled 01/27/17 07:40 Eosinophils % Cancelled 01/27/17 07:40 Basophils % Cancelled 01/27/17 07:40 Band Neutrophils Cancelled 01/27/17 07:40 Metamyelocytes Cancelled 01/27/17 07:40 Myelocytes Cancelled 01/27/17 07:40 Promyelocytes Cancelled 01/27/17 07:40 Nucleated RBCs Cancelled 01/27/17 07:40 Hypersegmented Neuts Cancelled 01/27/17 07:40 Plasmacytoid Lymphs Cancelled 01/27/17 07:40 Reactive Lymphocytes Cancelled 01/27/17 07:40 Blast Cells Cancelled 01/27/17 07:40 Plasma Cells Cancelled 01/27/17 07:40 Smudge Cells Cancelled 01/27/17 07:40 Other Cell Type Cancelled 01/27/17 07:40 Toxic Granulation Cancelled 01/27/17 07:40 Dohle Bodies Cancelled 01/27/17 07:40 Ewa Rods Cancelled 01/27/17 07:40 Polychromasia Cancelled 01/27/17 07:40 Hypochromic-Microcytic Cancelled 01/27/17 07:40 Poikilocytosis Cancelled 01/27/17 07:40 Basophilic Stippling Cancelled 01/27/17 07:40 Anisocytosis Cancelled 01/27/17 07:40 Microcytosis Cancelled 01/27/17 07:40 Macrocytosis Cancelled 01/27/17 07:40 Spherocytes Cancelled 01/27/17 07:40 Siderocytes Cancelled 01/27/17 07:40 Sickle Cells Cancelled 01/27/17 07:40 Target Cells Cancelled 01/27/17 07:40 Tear Drop Cells Cancelled 01/27/17 07:40 Ovalocytes Cancelled 01/27/17 07:40 Stomatocytes Cancelled 01/27/17 07:40 Helmet Cells Cancelled 01/27/17 07:40 [place] Bodies Cancelled 01/27/17 07:40 [place] Rings Cancelled 01/27/17 07:40 [place]idi Cells Cancelled 01/27/17 07:40 Acanthocytes (Spur) Cancelled 01/27/17 07:40 Rouleaux Cancelled 01/27/17 07:40 Fragmented RBCs Cancelled 01/27/17 07:40 Schistocytes Cancelled 01/27/17 07:40 Morphology Comment Cancelled 01/27/17 07:40 Sodium 143 mmol/L (136-145) 01/27/17 07:40 Potassium 4.2 mmol/L (3.5-5.1) 01/27/17 07:40 Chloride 106 mmol/L (98-107) 01/27/17 07:40 Carbon Dioxide 29 mmol/L (21-32) 01/27/17 07:40 Anion Gap 8 (8-16) 01/27/17 07:40 BUN 14 mg/dL (7-18) D 01/27/17 07:40 Creatinine 0.8 mg/dL (0.7-1.3) D 01/27/17 07:40 Creat Clearance w eGFR > 60 (>60) 01/27/17 07:40 Random Glucose 96 mg/dL (74-106) D 01/27/17 07:40 Calcium 8.8 mg/dL (8.5-10.1) 01/27/17 07:40 Total Bilirubin 0.2 mg/dL (0.2-1.0) D 01/27/17 07:40 AST 19 U/L (15-37) D 01/27/17 07:40 ALT 22 U/L (12-78) D 01/27/17 07:40 Alkaline Phosphatase 81 U/L (45-117) 01/27/17 07:40 Total Protein 6.5 g/dl (6.4-8.2) 01/27/17 07:40 Albumin 3.7 g/dl (3.4-5.0) 01/27/17 07:40 Urine Color Yellow 01/26/17 Unknown Urine Appearance Clear 01/26/17 Unknown Urine pH 5.0 (5.0-8.0) D 01/26/17 Unknown Ur Specific [place] 1.025 (1.001-1.035) 01/26/17 Unknown Urine Protein Negative (NEGATIVE) 01/26/17 Unknown Urine Glucose (UA) Negative (NEGATIVE) 01/26/17 Unknown Urine Ketones Negative (NEGATIVE) 01/26/17 Unknown Urine Blood Negative (NEGATIVE) 01/26/17 Unknown Urine Nitrite Negative (NEGATIVE) 01/26/17 Unknown Urine Bilirubin Negative (NEGATIVE) 01/26/17 Unknown Urine Urobilinogen Negative E.U./dl (0.2-1.0) 01/26/17 Unknown Ur Leukocyte Esterase Negative (NEGATIVE) 01/26/17 Unknown Fluid Tot Cell Count Cancelled 01/27/17 07:40 RPR Titer Nonreactive (NONREACTIVE) 01/27/17 07:40 HIV 1&2 Antibody Screen Negative 01/27/17 07:45 HIV P24 Antigen Negative 01/27/17 07:45 Assessment: 01/29/17 11:27 WITHDRAWAL SX INSOMNIA Plan: CONTINUE DETOX AMBIEN PER PSYCH DIRECTION
[2017-01-29] MEDS: hydrOXYzine PAMOATE 50 MG CAPSULE (FP) PO PRN (13:46)
[2017-01-29] MEDS: THIAMINE HCL 100 MG TABLET (FP) PO SCH (22:58)
[2017-01-29] MEDS: ZOLPIDEM TARTRATE 10 MG TABLET (PARK CARE ONLY) PO PRN (22:58)
[2017-01-30] MEDS: hydrOXYzine PAMOATE 50 MG CAPSULE (FP) PO PRN ×3 (06:03→14:46)
[2017-01-30] MEDS: CYCLOBENZAPRINE HCL 10 MG TABLET (FP) PO SCH ×3 (06:03→22:59)
[2017-01-30] MEDS ORDERED: METHADONE HCL 10 MG TABLET (FOR DETOX USE ONLY) PO ONE (10:00)
[2017-01-30] MEDS: NICOTINE 21 MG/24 HOURS TOPICAL PATCH TD SCH (10:37)
[2017-01-30] MEDS: PRENATAL VITAMINS W/ FOLIC ACID TABLET (FP) PO SCH (10:37)
[2017-01-30] MEDS: NICOTINE POLACRILEX 2 MG GUM BUC PRN (10:38)
--- NOTE | 2017-01-30 11:36 | PN ---
[facility] Progress Note (SOAP) Subjective: ANXIETY,IRRITABILITY,SWEATS,INTERMITTENT SLEEP. Objective: 01/30/17 11:36 Vital Signs Temperature 96.8 F L 01/30/17 09:22 Pulse Rate 88 01/30/17 09:22 Respiratory Rate 20 01/30/17 09:22 Blood Pressure 123/83 01/30/17 09:22 O2 Sat by Pulse Oximetry (%) Assessment: 01/30/17 11:36 WITHDRAWAL SX Plan: CONTINUE DETOX
[2017-01-30] MEDS: ONDANSETRON *ODT* 4 MG TABLET SL PRN ×2 (12:21→17:41)
[2017-01-30] MEDS: THIAMINE HCL 100 MG TABLET (FP) PO SCH (22:58)
[2017-01-30] MEDS: ZOLPIDEM TARTRATE 10 MG TABLET (PARK CARE ONLY) PO PRN (22:59)
[2017-01-31] MEDS: CYCLOBENZAPRINE HCL 10 MG TABLET (FP) PO SCH (05:45)
[2017-01-31] MEDS: hydrOXYzine PAMOATE 50 MG CAPSULE (FP) PO PRN (05:47)
[2017-01-31] MEDS ORDERED: METHADONE HCL 5 MG TABLET (FOR DETOX USE ONLY) PO ONE (06:00)
[2017-01-31 06:46] VITALS: BP 107/71; PULSE 87; TEMP 97
--- NOTE | 2017-01-31 09:12 | DS ---
[facility] Detox Discharge Summary Admission Date: 01/26/17 Discharge Date: 01/31/17 - History Present History: Cannabis Dependence, Opioid Dependence, Sedative Dependence Pertinent Past History: Insomnia - Physical Exam Results Vital Signs: Vital Signs Temperature 97 F L 01/31/17 06:45 Pulse Rate 87 01/31/17 06:45 Respiratory Rate 18 01/31/17 06:45 Blood Pressure 107/71 01/31/17 06:45 O2 Sat by Pulse Oximetry (%) Pertinent Admission Physical Exam Findings: Wityhdrawal sx. Laboratory Last Values WBC 8.9 K/mm3 (4.0-10.0) 01/27/17 07:40 Corrected WBC (auto) 8.90 K/mm3 01/27/17 07:40 RBC 4.79 M/mm3 (4.00-5.60) 01/27/17 07:40 Hgb 13.8 GM/dL (11.7-16.9) 01/27/17 07:40 Hct 41.9 % (35.4-49) 01/27/17 07:40 MCV 87.4 fl (80-96) 01/27/17 07:40 MCHC 33.1 g/dl (32.0-35.9) 01/27/17 07:40 RDW 13.4 % (11.9-15.9) 01/27/17 07:40 Plt Count 227 K/MM3 (134-434) 01/27/17 07:40 MPV 8.3 fl (7.5-11.1) 01/27/17 07:40 Neutrophils % Cancelled 01/27/17 07:40 Lymphocytes % Cancelled 01/27/17 07:40 Monocytes % Cancelled 01/27/17 07:40 Eosinophils % Cancelled 01/27/17 07:40 Basophils % Cancelled 01/27/17 07:40 Band Neutrophils Cancelled 01/27/17 07:40 Metamyelocytes Cancelled 01/27/17 07:40 Myelocytes Cancelled 01/27/17 07:40 Promyelocytes Cancelled 01/27/17 07:40 Nucleated RBCs Cancelled 01/27/17 07:40 Hypersegmented Neuts Cancelled 01/27/17 07:40 Plasmacytoid Lymphs Cancelled 01/27/17 07:40 Reactive Lymphocytes Cancelled 01/27/17 07:40 Blast Cells Cancelled 01/27/17 07:40 Plasma Cells Cancelled 01/27/17 07:40 Smudge Cells Cancelled 01/27/17 07:40 Other Cell Type Cancelled 01/27/17 07:40 Toxic Granulation Cancelled 01/27/17 07:40 Dohle Bodies Cancelled 01/27/17 07:40 Ewa Rods Cancelled 01/27/17 07:40 Polychromasia Cancelled 01/27/17 07:40 Hypochromic-Microcytic Cancelled 01/27/17 07:40 Poikilocytosis Cancelled 01/27/17 07:40 Basophilic Stippling Cancelled 01/27/17 07:40 Anisocytosis Cancelled 01/27/17 07:40 Microcytosis Cancelled 01/27/17 07:40 Macrocytosis Cancelled 01/27/17 07:40 Spherocytes Cancelled 01/27/17 07:40 Siderocytes Cancelled 01/27/17 07:40 Sickle Cells Cancelled 01/27/17 07:40 Target Cells Cancelled 01/27/17 07:40 Tear Drop Cells Cancelled 01/27/17 07:40 Ovalocytes Cancelled 01/27/17 07:40 Stomatocytes Cancelled 01/27/17 07:40 Helmet Cells Cancelled 01/27/17 07:40 [place] Bodies Cancelled 01/27/17 07:40 [place] Rings Cancelled 01/27/17 07:40 Heidi Cells Cancelled 01/27/17 07:40 Acanthocytes (Spur) Cancelled 01/27/17 07:40 Rouleaux Cancelled 01/27/17 07:40 Fragmented RBCs Cancelled 01/27/17 07:40 Schistocytes Cancelled 01/27/17 07:40 Morphology Comment Cancelled 01/27/17 07:40 Sodium 143 mmol/L (136-145) 01/27/17 07:40 Potassium 4.2 mmol/L (3.5-5.1) 01/27/17 07:40 Chloride 106 mmol/L (98-107) 01/27/17 07:40 Carbon Dioxide 29 mmol/L (21-32) 01/27/17 07:40 Anion Gap 8 (8-16) 01/27/17 07:40 BUN 14 mg/dL (7-18) D 01/27/17 07:40 Creatinine 0.8 mg/dL (0.7-1.3) D 01/27/17 07:40 Creat Clearance w eGFR > 60 (>60) 01/27/17 07:40 Random Glucose 96 mg/dL (74-106) D 01/27/17 07:40 Calcium 8.8 mg/dL (8.5-10.1) 01/27/17 07:40 Total Bilirubin 0.2 mg/dL (0.2-1.0) D 01/27/17 07:40 AST 19 U/L (15-37) D 01/27/17 07:40 ALT 22 U/L (12-78) D 01/27/17 07:40 Alkaline Phosphatase 81 U/L (45-117) 01/27/17 07:40 Total Protein 6.5 g/dl (6.4-8.2) 01/27/17 07:40 Albumin 3.7 g/dl (3.4-5.0) 01/27/17 07:40 Urine Color Yellow 01/26/17 Unknown Urine Appearance Clear 01/26/17 Unknown Urine pH 5.0 (5.0-8.0) D 01/26/17 Unknown Ur Specific [place] 1.025 (1.001-1.035) 01/26/17 Unknown Urine Protein Negative (NEGATIVE) 01/26/17 Unknown Urine Glucose (UA) Negative (NEGATIVE) 01/26/17 Unknown Urine Ketones Negative (NEGATIVE) 01/26/17 Unknown Urine Blood Negative (NEGATIVE) 01/26/17 Unknown Urine Nitrite Negative (NEGATIVE) 01/26/17 Unknown Urine Bilirubin Negative (NEGATIVE) 01/26/17 Unknown Urine Urobilinogen Negative E.U./dl (0.2-1.0) 01/26/17 Unknown Ur Leukocyte Esterase Negative (NEGATIVE) 01/26/17 Unknown Fluid Tot Cell Count Cancelled 01/27/17 07:40 RPR Titer Nonreactive (NONREACTIVE) 01/27/17 07:40 HIV 1&2 Antibody Screen Negative 01/27/17 07:45 HIV P24 Antigen Negative 01/27/17 07:45 labs noted - Treatment Hospital Course: Detox Protocol Followed, Detoxed Safely, Responded well, Discharged Condition Good, Rehab Referral Accepted - Medication Discharge Medications: Ambulatory Orders NK [No Known Home Medication] 11/15/16 - Diagnosis (1) Cannabis dependence Current Visit: Yes Status: Acute (2) Opioid dependence with withdrawal Current Visit: Yes Status: Acute (3) Sedative/hypnotic withdrawal without complication Current Visit: Yes Status: Acute (4) Nicotine dependence Current Visit: Yes Status: Chronic Qualifiers: Nicotine product type: cigarettes Substance use status: uncomplicated Qualified Code(s): F17.210 - Nicotine dependence, cigarettes, uncomplicated (5) Insomnia Current Visit: No Status: Acute - AMA Did Patient Leave Against Medical Advice: No
== END 2017-01-31 09:28 | disposition home or self-care (01) | DRG 773 ==
LOC: YASAS 10:27 → Y3N 12:13
PROVIDERS: ADMIT Internal Medicine Addiction Medicine; ATTEND Internal Medicine Addiction Medicine
PROC: HZ2ZZZZ Detoxification Services for Substance Abuse Treatment (ICD-10-PCS; principal; 2017-01-31)
DX: F11.23 Opioid dependence with withdrawal (principal); F13.230 Sedative, hypnotic or anxiolytic dependence with withdrawal, uncomplicated; F12.20 Cannabis dependence, uncomplicated; F17.210 Nicotine dependence, cigarettes, uncomplicated; G47.00 Insomnia, unspecified
CPT/HCPCS: 36415; 80053; 81003; 85027; 86593; 87389; 93005; 93010

== ENCOUNTER 2017-04-04 08:48 | Inpatient (IN) | payer OTHER ==
[2017-04-04 10:48] VITALS: BMI 24.0
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
[2017-04-04] MEDS ORDERED: guaiFENesin/D-METHORPHAN HB 10 ML UNIT-DOSE CUPS PO PRN (13:58)
[2017-04-04] MEDS ORDERED: MENTHOL/PHENOL 1 EACH UD MM PRN (13:58)
[2017-04-04] MEDS ORDERED: MAGNESIUM CITRATE 300 ML BOTTLE PO PRN (13:58)
[2017-04-04] MEDS ORDERED: LOPERAMIDE HCL 2 MG CAPSULE PO PRN (13:58)
[2017-04-04] MEDS ORDERED: MAG HYDROX/AL HYDROX/SIMETH 30 ML UNIT-DOSE CUP PO PRN (13:58)
[2017-04-04] MEDS ORDERED: MAGNESIUM HYDROX 2400MG/30ML ORAL SUSPENSION 30 ML CUP PO PRN (13:58)
[2017-04-04] MEDS ORDERED: ACETAMINOPHEN 325 MG TABLET (FP) PO PRN (13:58)
[2017-04-04] MEDS ORDERED: IBUPROFEN 400 MG TABLET (FP) PO PRN (13:58)
[2017-04-04] MEDS ORDERED: NICOTINE POLACRILEX 2 MG GUM BUC PRN (13:58)
[2017-04-04] MEDS ORDERED: P-EPHED 60MG/TRIPROLIDI 2.5MG TABLET PO PRN (13:58)
[2017-04-04] MEDS ORDERED: METHADONE HCL 10 MG TABLET (FOR DETOX USE ONLY) PO ONE ×2 (14:12→23:00)
[2017-04-04] MEDS: diazePAM 5 MG TABLET PO PRN ×2 (15:00→22:25)
[2017-04-04] MEDS: NICOTINE 21 MG/24 HOURS TOPICAL PATCH TD SCH (15:02)
--- NOTE | 2017-04-04 17:05 | CONSULT ---
[facility] Psychiatric Consult - Data Date of interview: 04/04/17 Admission source: [facility] Identifying data: Readmission to [facility] for this 26 y/o male seeking detox treatment on for heroin,xanax and marijuana dependence.Patient is single,a father of one,now homeless,unemployed and deprived of any source of income. Substance Abuse History: - Smoking Cessation. Smoking history: Current every day smoker. Have you smoked in the past 12 months: Yes. Aproximately how many cigarettes per day: 10. Cigars Per Day: 0. Hx Chewing Tobacco Use: No. Initiated information on smoking cessation: Yes. 'Breaking Loose' booklet given : 04/04/17 (GIVEN ON UNIT.). - Substance & Tx. History. Hx Alcohol Use: No. Hx Substance Use: Yes. Substance Use Type: Heroin, Marijuana, Tranquilizers. Hx Substance Use Treatment: Yes (2 Previous Detox admissions at [facility] - Substances Abused. Heroin. Route: Inhalation. Frequency: Daily. Amount used: 10 bags. Age of first use: 21. Date of Last Use: 04/03/17. Marijuana /Hashish. Route: Smoking. Frequency: Daily. Amount used: 3 joints. Age of first use: 14. Date of Last Use: 04/04/17. Alprazolam (Xanax). Route: Oral. Frequency: 1-2 times per week. Amount used: 1 mg. Age of first use: 26. Date of Last Use: 04/04/17. Confirmed by patient. Medical History: No report of medical problems. Psychiatric History: Patient denies. Physical/Sexual Abuse/Trauma History: Patient denies. Additional Comment: Urine Drug Screen Results: THC-Marijuana, OPI-Opiates.Noted. Mental Status Exam - Mental Status Exam Alert and Oriented to: Time, Place, Person Cognitive Function: Good Patient Appearance: Well Groomed Mood: Hopeful, Euthymic Affect: Appropriate, Normal Range Patient Behavior: Fatigued, Appropriate, Cooperative Speech Pattern: Clear, Appropriate Voice Loudness: Normal Thought Process: Goal Oriented Thought Disorder: Not Present Hallucinations: Denies Suicidal Ideation: Denies Homicidal Ideation: Denies Insight/Judgement: Poor Sleep: Poorly, Difficulty falling asleep (wants to be on seroquel) Appetite: Good Muscle strength/Tone: Normal Gait/Station: Normal Psychiatric Findings - Problem List ([place] 1, 2,3) (1) Opioid dependence with withdrawal Current Visit: Yes Status: Acute (2) Cannabis dependence Current Visit: Yes Status: Acute (3) Sedative/hypnotic withdrawal without complication Current Visit: Yes Status: Acute (4) Nicotine dependence Current Visit: Yes Status: Chronic Qualifiers: Nicotine product type: cigarettes Substance use status: uncomplicated Qualified Code(s): F17.210 - Nicotine dependence, cigarettes, uncomplicated (5) Benzodiazepine dependence Current Visit: Yes Status: Acute (6) Insomnia Current Visit: Yes Status: Acute - Initial Treatment Plan Initial Treatment Plan: Psychoeducation.Detoxification.Medication : seroquel 100 mg po hs.Side effects/benefits discussed with the patient.He is in agreement with this careplan.Observation.
[2017-04-04 20:14] LABS: URINE APPEARANCE CLEAR; URINE BILIRUBIN NEGATIVE (NEGATIVE); URINE BLOOD NEGATIVE (NEGATIVE); URINE COLOR LTYELLOW; URINE GLUCOSE (UA) NEGATIVE (NEGATIVE); URINE KETONE NEGATIVE (NEGATIVE); URINE LEUK ESTERASE NEGATIVE (NEGATIVE); URINE NITRITE NEGATIVE (NEGATIVE); URINE PROTEIN NEGATIVE (NEGATIVE); URINE UROBILINOGEN NEGATIVE E.U./dl (0.2-1.0)
[2017-04-04] MEDS: THIAMINE HCL 100 MG TABLET (FP) PO SCH (22:24)
[2017-04-04] MEDS: diphenhydrAMINE HCL 50 MG CAPSULE PO PRN (22:24)
[2017-04-04] MEDS: QUEtiapine FUMARATE 100 MG TABLET (FP) PO SCH (22:24)
[2017-04-05] MEDS ORDERED: METHADONE HCL 10 MG TABLET (FOR DETOX USE ONLY) PO ONE (10:00)
[2017-04-05] MEDS: PRENATAL VITAMINS W/ FOLIC ACID TABLET (FP) PO SCH (10:27)
[2017-04-05] MEDS: diazePAM 5 MG TABLET PO PRN ×3 (10:27→20:03)
[2017-04-05] MEDS: NICOTINE 21 MG/24 HOURS TOPICAL PATCH TD SCH (10:28)
[2017-04-05 10:38] LABS: MCH 29.2 pg (25.7-33.7); MCHC 33.2 g/dl (32.0-35.9); MEAN CELL VOLUME 88.1 fl (80-96); MEAN PLT VOLUME 8.6 fl (7.5-11.1); PLATELET COUNT 238 K/MM3 (134-434); RDW 13.2 % (11.9-15.9); WHITE BLOOD COUNT 7.7 K/mm3 (4.0-10.0)
[2017-04-05 11:43] LABS: ALBUMIN 4.2 g/dl (3.4-5.0); ALK PHOS 89 U/L (45-117); ANION GAP 10 (8-16); BILIRUBIN,TOTAL 0.6 mg/dL (0.2-1.0); CALCIUM 9.5 mg/dL (8.5-10.1); CO2 26 mmol/L (21-32); COCKROFT - GAULT 110.73; CREATININE 0.9 mg/dL (0.7-1.3); GLUCOSE,RANDOM 97 mg/dL (74-106); SGOT/AST 21 U/L (15-37); SGPT/ALT 18 U/L (12-78); TOT PROT 7.6 g/dl (6.4-8.2)
[2017-04-05] MEDS: CYCLOBENZAPRINE HCL 10 MG TABLET (FP) PO PRN ×2 (14:23→22:13)
--- NOTE | 2017-04-05 19:52 | PN ---
S CIWA - CIWA Score Nausea/Vomitin-No Nausea/No Vomiting Muscle Tremors: 3 Anxiety: 3 Agitation: 4-Moderately Restless Paroxysmal Sweats: 3 Orientation: 0-Oriented Tacttile Disturbances: 2-Mild Itch/Numbness/Burn Auditory Disturbances: 2-Mild Harshness/Frighten Visual Disturbances: 1-Very Mild Sensitivity Headache: 0-None Present CIWA-Ar Total Score: 18 BHS Progress Note (SOAP) Subjective: Constipation, Interrupted sleep, Body Aches, Sweating. Objective: PT. A & O X 3, OBSERVED AMBULATING ON UNIT. 04/05/17 19:51 Vital Signs Temperature 98.1 F 04/05/17 18:33 Pulse Rate 96 H 04/05/17 18:33 Respiratory Rate 20 04/05/17 18:33 Blood Pressure 121/90 04/05/17 18:33 O2 Sat by Pulse Oximetry (%) Laboratory Tests 04/04/17 04/05/17 04/05/17 19:35 06:00 06:00 WBC 7.7 RBC 4.82 Hgb 14.1 Hct 42.5 MCV 88.1 MCHC 33.2 RDW 13.2 Plt Count 238 MPV 8.6 Sodium 143 Potassium 4.1 Chloride 107 Carbon Dioxide 26 Anion Gap 10 BUN 12 Creatinine 0.9 Creat Clearance w eGFR > 60 Random Glucose 97 Calcium 9.5 Total Bilirubin 0.6 D AST 21 ALT 18 Alkaline Phosphatase 89 Total Protein 7.6 Albumin 4.2 Urine Color Ltyellow Urine Appearance Clear Urine pH 8.0 D Ur Specific [place] 1.020 Urine Protein Negative Urine Glucose (UA) Negative Urine Ketones Negative Urine Blood Negative Urine Nitrite Negative Urine Bilirubin Negative Urine Urobilinogen Negative Ur Leukocyte Esterase Negative RPR Titer 04/05/17 06:00 WBC RBC Hgb Hct MCV MCHC RDW Plt Count MPV Sodium Potassium Chloride Carbon Dioxide Anion Gap BUN Creatinine Creat Clearance w eGFR Random Glucose Calcium Total Bilirubin AST ALT Alkaline Phosphatase Total Protein Albumin Urine Color Urine Appearance Urine pH Ur Specific [place] Urine Protein Urine Glucose (UA) Urine Ketones Urine Blood Urine Nitrite Urine Bilirubin Urine Urobilinogen Ur Leukocyte Esterase RPR Titer Nonreactive LABS NOTED. Assessment: 04/05/17 19:52 WITHDRAWAL SYMPTOMS. Plan: CONTINUE DETOX.
[2017-04-05] MEDS: QUEtiapine FUMARATE 100 MG TABLET (FP) PO SCH (22:13)
[2017-04-05] MEDS: diphenhydrAMINE HCL 50 MG CAPSULE PO PRN (22:13)
[2017-04-05] MEDS: THIAMINE HCL 100 MG TABLET (FP) PO SCH (22:13)
[2017-04-06] MEDS: diazePAM 5 MG TABLET PO PRN ×4 (05:24→22:22)
[2017-04-06] MEDS: CYCLOBENZAPRINE HCL 10 MG TABLET (FP) PO PRN ×3 (05:24→22:22)
[2017-04-06] MEDS ORDERED: METHADONE HCL 5 MG TABLET (FOR DETOX USE ONLY) PO ONE (10:00)
[2017-04-06] MEDS: PRENATAL VITAMINS W/ FOLIC ACID TABLET (FP) PO SCH (10:29)
[2017-04-06] MEDS: NICOTINE 21 MG/24 HOURS TOPICAL PATCH TD SCH (10:31)
--- NOTE | 2017-04-06 19:49 | PN ---
BHS COWS - Scale Resting Pulse: 0= [place] 80 or Below Sweatin=Flushed/Facial Moisture Restless Observation: 1= Difficult to Sit Still Pupil Size: 0= Normal to Room Light Bone or Joint Aches: 2= Severe Diffuse Aches Runny Nose/ Eye Tearin= Runny Nose/Eyes GI Upset > 30mins: 2= Nausea/Diarrhea Tremor Observation of Outstretched Hands: 2= Slight Tremor Visible Yawning Observation: 1= 1-2x During Session Anxiety or Irritability: 2=Irritable/Anxious Goose Flesh Skin: 0=Smooth Skin COWS Score: 14 BHS Progress Note (SOAP) Subjective: Anxiety,tremors,sweating,interrupted sleep,restless Objective: 04/06/17 19:48 Vital Signs - 8 hr 04/06/17 04/06/17 13:49 17:56 Temperature 97.5 F L 97.7 F Pulse Rate 71 75 Respiratory 18 18 Rate Blood Pressure 140/78 122/67 Laboratory Tests 04/04/17 04/05/17 04/05/17 19:35 06:00 06:00 WBC 7.7 RBC 4.82 Hgb 14.1 Hct 42.5 MCV 88.1 MCHC 33.2 RDW 13.2 Plt Count 238 MPV 8.6 Sodium 143 Potassium 4.1 Chloride 107 Carbon Dioxide 26 Anion Gap 10 BUN 12 Creatinine 0.9 Creat Clearance w eGFR > 60 Random Glucose 97 Calcium 9.5 Total Bilirubin 0.6 D AST 21 ALT 18 Alkaline Phosphatase 89 Total Protein 7.6 Albumin 4.2 Urine Color Ltyellow Urine Appearance Clear Urine pH 8.0 D Ur Specific [place] 1.020 Urine Protein Negative Urine Glucose (UA) Negative Urine Ketones Negative Urine Blood Negative Urine Nitrite Negative Urine Bilirubin Negative Urine Urobilinogen Negative Ur Leukocyte Esterase Negative RPR Titer 04/05/17 06:00 WBC RBC Hgb Hct MCV MCHC RDW Plt Count MPV Sodium Potassium Chloride Carbon Dioxide Anion Gap BUN Creatinine Creat Clearance w eGFR Random Glucose Calcium Total Bilirubin AST ALT Alkaline Phosphatase Total Protein Albumin Urine Color Urine Appearance Urine pH Ur Specific [place] Urine Protein Urine Glucose (UA) Urine Ketones Urine Blood Urine Nitrite Urine Bilirubin Urine Urobilinogen Ur Leukocyte Esterase RPR Titer Nonreactive labs noted Assessment: 04/06/17 19:48 Withdrawal sx Plan: Continue detox
[2017-04-06] MEDS: diphenhydrAMINE HCL 50 MG CAPSULE PO PRN (22:22)
[2017-04-06] MEDS: THIAMINE HCL 100 MG TABLET (FP) PO SCH (22:22)
[2017-04-06] MEDS: QUEtiapine FUMARATE 100 MG TABLET (FP) PO SCH (22:22)
--- NOTE | 2017-04-06 23:23 | EKG ---
Test Reason : Blood Pressure : / mmHG Vent. Rate : 073 BPM Atrial Rate : 073 BPM P-R Int : 138 ms QRS Dur : 094 ms QT Int : 404 ms P-R-T Axes : 067 069 042 degrees QTc Int : 445 ms NORMAL SINUS RHYTHM WITH SINUS ARRHYTHMIA NORMAL ECG WHEN COMPARED WITH ECG OF 27-JAN-2017 06:03, Confirmed by LETI STRICKLAND MD ([id number]) on 04/06/2017 11:22:58 PM Referred By: Mike Lieberman Confirmed By:LETI STRICKLAND MD
[2017-04-07] MEDS: diazePAM 5 MG TABLET PO PRN ×2 (09:05→12:56)
[2017-04-07] MEDS: PRENATAL VITAMINS W/ FOLIC ACID TABLET (FP) PO SCH (09:05)
[2017-04-07] MEDS: CYCLOBENZAPRINE HCL 10 MG TABLET (FP) PO PRN ×3 (09:05→22:31)
[2017-04-07] MEDS: NICOTINE 21 MG/24 HOURS TOPICAL PATCH TD SCH (09:06)
[2017-04-07] MEDS ORDERED: METHADONE HCL 5 MG TABLET (FOR DETOX USE ONLY) PO ONE (10:00)
--- NOTE | 2017-04-07 16:31 | PN ---
BHS Progress Note (SOAP) Subjective: Interrupted Sleep, Sweating, Anxious, H/A, Body Aches. Objective: PT. A & O X 2 (DISORIENTED ABOUT DAY / DATE). PT. OBSERVED AMBULATING ON UNIT. NO ACUTE DISTRESS. PT. DENIES CHEST PAIN. 04/07/17 16:29 Vital Signs Temperature 97.2 F L 04/07/17 15:47 Pulse Rate 86 04/07/17 15:47 Respiratory Rate 20 04/07/17 15:47 Blood Pressure 137/66 04/07/17 15:47 O2 Sat by Pulse Oximetry (%) Laboratory Tests 04/04/17 04/05/17 04/05/17 19:35 06:00 06:00 WBC 7.7 RBC 4.82 Hgb 14.1 Hct 42.5 MCV 88.1 MCHC 33.2 RDW 13.2 Plt Count 238 MPV 8.6 Sodium 143 Potassium 4.1 Chloride 107 Carbon Dioxide 26 Anion Gap 10 BUN 12 Creatinine 0.9 Creat Clearance w eGFR > 60 Random Glucose 97 Calcium 9.5 Total Bilirubin 0.6 D AST 21 ALT 18 Alkaline Phosphatase 89 Total Protein 7.6 Albumin 4.2 Urine Color Ltyellow Urine Appearance Clear Urine pH 8.0 D Ur Specific [place] 1.020 Urine Protein Negative Urine Glucose (UA) Negative Urine Ketones Negative Urine Blood Negative Urine Nitrite Negative Urine Bilirubin Negative Urine Urobilinogen Negative Ur Leukocyte Esterase Negative RPR Titer 04/05/17 06:00 WBC RBC Hgb Hct MCV MCHC RDW Plt Count MPV Sodium Potassium Chloride Carbon Dioxide Anion Gap BUN Creatinine Creat Clearance w eGFR Random Glucose Calcium Total Bilirubin AST ALT Alkaline Phosphatase Total Protein Albumin Urine Color Urine Appearance Urine pH Ur Specific [place] Urine Protein Urine Glucose (UA) Urine Ketones Urine Blood Urine Nitrite Urine Bilirubin Urine Urobilinogen Ur Leukocyte Esterase RPR Titer Nonreactive LABS NOTED. Assessment: 04/07/17 16:30 WITHDRAWAL SYMPTOMS. Plan: CONTINUE DETOX.
[2017-04-07] MEDS: hydrOXYzine PAMOATE 50 MG CAPSULE (FP) PO PRN (16:40)
[2017-04-07] MEDS: diphenhydrAMINE HCL 50 MG CAPSULE PO PRN (22:29)
[2017-04-07] MEDS: THIAMINE HCL 100 MG TABLET (FP) PO SCH (22:29)
[2017-04-07] MEDS: QUEtiapine FUMARATE 100 MG TABLET (FP) PO SCH (22:29)
[2017-04-08] MEDS ORDERED: METHADONE HCL 10 MG TABLET (FOR DETOX USE ONLY) PO ONE (10:00)
[2017-04-08] MEDS: PRENATAL VITAMINS W/ FOLIC ACID TABLET (FP) PO SCH (10:05)
[2017-04-08] MEDS: NICOTINE 21 MG/24 HOURS TOPICAL PATCH TD SCH (10:05)
[2017-04-08] MEDS: CYCLOBENZAPRINE HCL 10 MG TABLET (FP) PO PRN ×2 (10:06→17:27)
--- NOTE | 2017-04-08 10:38 | PN ---
BHS Progress Note (SOAP) Subjective: agitation interrupted sleep sweats Objective: 04/08/17 10:38 Vital Signs Temperature 97.9 F 04/08/17 09:49 Pulse Rate 78 04/08/17 09:49 Respiratory Rate 18 04/08/17 09:49 Blood Pressure 128/86 04/08/17 09:49 O2 Sat by Pulse Oximetry (%) awake/alert ambulating no acute distress Assessment: 04/08/17 10:38 withdrawal sx Plan: continue detox increase fluids d/c in am
[2017-04-08] MEDS: hydrOXYzine PAMOATE 50 MG CAPSULE (FP) PO PRN ×2 (13:32→17:27)
[2017-04-08] MEDS: THIAMINE HCL 100 MG TABLET (FP) PO SCH (22:41)
[2017-04-08] MEDS: QUEtiapine FUMARATE 100 MG TABLET (FP) PO SCH (22:41)
[2017-04-08] MEDS: diphenhydrAMINE HCL 50 MG CAPSULE PO PRN (22:41)
[2017-04-09] MEDS ORDERED: METHADONE HCL 5 MG TABLET (FOR DETOX USE ONLY) PO ONE (06:00)
[2017-04-09] MEDS: CYCLOBENZAPRINE HCL 10 MG TABLET (FP) PO PRN (06:13)
[2017-04-09 06:54] VITALS: BP 128/71; PULSE 73; TEMP 97.7
--- NOTE | 2017-04-09 08:57 | DS ---
[facility] Detox Discharge Summary Admission Date: 04/04/17 Discharge Date: 04/09/17 - History Present History: Cannabis Dependence, Opioid Dependence, Sedative Dependence - Physical Exam Results Vital Signs: Vital Signs Temperature 97.7 F 04/09/17 06:00 Pulse Rate 73 04/09/17 06:00 Respiratory Rate 16 04/09/17 06:00 Blood Pressure 128/71 04/09/17 06:00 O2 Sat by Pulse Oximetry (%) - Treatment Hospital Course: Detox Protocol Followed, Detoxed Safely, Responded well, Discharged Condition Good - Medication Discharge Medications: Ambulatory Orders NK [No Known Home Medication] 11/15/16 - Diagnosis (1) Anxiety Status: Chronic (2) Benzodiazepine dependence Status: Chronic (3) Cannabis dependence Status: Chronic (4) Opioid dependence with withdrawal Status: Chronic (5) Sedative/hypnotic withdrawal without complication Status: Chronic (6) Nicotine dependence Status: Chronic Qualifiers: Nicotine product type: cigarettes Substance use status: uncomplicated Qualified Code(s): F17.210 - Nicotine dependence, cigarettes, uncomplicated - AMA Did Patient Leave Against Medical Advice: No
== END 2017-04-09 07:38 | disposition home or self-care (01) | DRG 773 ==
LOC: YASAS 08:48 → Y6N 13:04
PROVIDERS: ADMIT Internal Medicine; ATTEND Internal Medicine
PROC: HZ2ZZZZ Detoxification Services for Substance Abuse Treatment (ICD-10-PCS; principal; 2017-04-09)
DX: F11.23 Opioid dependence with withdrawal (principal); F13.230 Sedative, hypnotic or anxiolytic dependence with withdrawal, uncomplicated; F12.20 Cannabis dependence, uncomplicated; F17.210 Nicotine dependence, cigarettes, uncomplicated; F41.9 Anxiety disorder, unspecified; G47.00 Insomnia, unspecified
CPT/HCPCS: 36415; 80053; 81003; 85027; 86593; 93005; 93010

== ENCOUNTER 2018-01-29 13:40 | Inpatient (IN) | payer OTHER ==
[2018-01-29 19:38] VITALS: BMI 21.7
--- NOTE | 2018-01-29 20:31 | HP ---
Admission [facility] Chief Complaint: Patient with methadone and marijuana dependence is seeking admission to Rehab. Allergies/Adverse Reactions: Allergies Allergy/AdvReac Type Severity Reaction Status Date / Time shellfish derived Allergy Severe Difficulty Verified 01/29/18 19:53 Breathing No Known Drug Allergies Allergy Verified 01/29/18 19:53 History of Present Illness: 27 years old male with methadone and marijuana dependence is seeking admission to Rehab. Patient states that he has been to Rehab. twice at [facility] and [facility]. in [place]. Patient reports history of anxiety and depression. He denies suicide attempt and suicidal ideation at this time. He states that he is not on methadone maintenance therapy at this time. Exam Limitations: No Limitations - Ebola screening Have you traveled outside of the country in the last 21 days: No Have you had contact with anyone from an Ebola affected area: No Have you been sick,other than usual withdrawal symptoms: No Do you have a fever: No - Review of Systems Constitutional: No Symptoms Reported EENT: reports: No Symptoms Reported Respiratory: reports: No Symptoms reported Cardiac: reports: No Symptoms Reported GI: reports: No Symptoms Reported : reports: No Symptoms Reported Musculoskeletal: reports: No Symptoms Reported Integumentary: reports: No Symptoms Reported Neuro: reports: No Symptoms reported Endocrine: reports: No Symptoms Reported Hematology: reports: No Symptoms Reported Psychiatric: reports: No Sypmtoms Reported, Orientated x3 Other Systems: Reviewed and Negative Patient History - Patient Medical History Hx Anemia: No Hx Asthma: No Hx Chronic Obstructive Pulmonary Disease (COPD): No Hx Cancer: No Hx Cardiac Disorders: No Hx Congestive Heart Failure: No Hx Hypertension: No Hx Hypercholesterolemia: No Hx Pacemaker: No HX Cerebrovascular Accident: No Hx Seizures: No Hx Dementia: No Hx Diabetes: No Hx Gastrointestinal Disorders: No Hx Liver Disease: No Hx Genitourinary Disorders: No Hx Sexually Transmitted Disorders: No Hx Renal Disease (ESRD): No Hx Thyroid Disease: No Hx Human Immunodeficiency Virus (HIV): No ( NEGATIVE 01/2017 ) Hx Hepatitis C: No ( NEGATIVE 11/2016 ) Hx Depression: Yes (No previous Treatment or medication.) Hx Suicide Attempt: No (Denies suicidal and homicidal ideation at this time) Hx Bipolar Disorder: No Hx Schizophrenia: No Other Medical History: ANXIETY - Not on medication - Patient Surgical History Past Surgical History: Yes Hx Neurologic Surgery: No Hx Cataract Extraction: No Hx Cardiac Surgery: No Hx Lung Surgery: No Hx Breast Surgery: No Hx Breast Biopsy: No Hx Abdominal Surgery: No Hx Appendectomy: No Hx Cholecystectomy: No Hx Genitourinary Surgery: No Hx Orthopedic Surgery: Yes (S/P Fx Left Forearm at age 13 yrs old.) Anesthesia Reaction: No - PPD History Previous Implant?: Yes Documented Results: Negative w/proof Implanted On Prior [facility] Admission?: Yes Date: 01/28/17 Results: 0 mm PPD to be Administered?: Yes - Reproductive History Patient is a Female of Child Bearing Age (11 -55 yrs old): No (MALE) - Smoking Cessation Smoking history: Current every day smoker Have you smoked in the past 12 months: Yes Aproximately how many cigarettes per day: 10 Cigars Per Day: 0 Hx Chewing Tobacco Use: No Initiated information on smoking cessation: Yes 'Breaking Loose' booklet given: 01/29/18 - Substance & Tx. History Hx Alcohol Use: No Hx Substance Use: Yes Substance Use Type: Heroin, Marijuana Hx Substance Use Treatment: Yes ([facility]) - Substances Abused Marijuana/Hashish Route: Oral Frequency: Daily Amount used: 4 JOINTS Age of first use: 12 Date of Last Use: 01/06/18 METHADONE Route: Oral Frequency: Daily Amount used: 90mg Age of first use: 26 Date of Last Use: 01/08/18 Family Disease History - Family Disease History Family Disease History: Diabetes: Mother, Heart Disease: Mother, Other: Brother (Drug abuse and Alcoholic) Admission Physical Exam S - Vital Signs Vital Signs: Vital Signs - 24 hr 01/29/18 19:36 Temperature 98.5 F Pulse Rate 110 H Respiratory 20 Rate Blood Pressure 155/90 - Physical General Appearance: Yes: Within Normal Limits, Appropriately Dressed HEENTM: Yes: EOMI, Normal ENT Inspection, Normal Voice, DAVON Respiratory: Yes: Lungs Clear, Normal Breath Sounds, No Respiratory Distress Neck: Yes: Supple Breast: Yes: Breast Exam Deferred Cardiology: Yes: Regular Rhythm, Regular Rate, S1, S2 Abdominal: Yes: Normal Bowel Sounds, Soft Genitourinary: Yes: Within Normal Limits Musculoskeletal: Yes: Within Normal Limits Extremities: Yes: Normal Inspection Neurological: Yes: Alert, Normal Mood/Affect Integumentary: Yes: Warm Lymphatic: Yes: Within Normal Limits - Diagnostic (1) Depression Current Visit: Yes Status: Chronic Qualifiers: Depression Type: unspecified Qualified Code(s): F32.9 - Major depressive disorder, single episode, unspecified (2) Anxiety Current Visit: Yes Status: Chronic (3) Benzodiazepine dependence Current Visit: Yes Status: Chronic (4) Cannabis dependence Current Visit: Yes Status: Chronic (5) Nicotine dependence Current Visit: Yes Status: Chronic Qualifiers: Nicotine product type: cigarettes Substance use status: uncomplicated Qualified Code(s): F17.210 - Nicotine dependence, cigarettes, uncomplicated Cleared for Admission [facility] - Detox or Rehab [facility] Level of Care: Observation Bed Detox Regimen/Protocol: Not Applicable Claeared for Rehab Admission: Yes [facility] Breath Alcohol Content Breath Alcohol Content: 0 Urine Drug Screen - Results Drug Screen Negative: No Urine Drug Screen Results: THC-Marijuana, BZO-Benzodiazepines Inpatient Rehab Admission - Initial Determination Are CD services needed?: Yes Free of communicable disease: Yes Not in need of hospitalization: Yes - Rehab Admission Criteria Previous failed treatment: Yes Poor recovery environment: Yes Comorbidities: Yes Lacks judgement: No Patient is meeting Inpatient Rehab admission criteria:: Yes
[2018-01-29] MEDS ORDERED: ACETAMINOPHEN 325 MG TABLET (FP) PO PRN (20:47)
[2018-01-29] MEDS ORDERED: MAGNESIUM CITRATE 300 ML BOTTLE PO PRN (20:47)
[2018-01-29] MEDS ORDERED: MAGNESIUM HYDROX 2400MG/30ML ORAL SUSPENSION 30 ML CUP PO PRN (20:47)
[2018-01-29] MEDS ORDERED: LOPERAMIDE HCL 2 MG CAPSULE PO PRN (20:47)
[2018-01-29] MEDS ORDERED: P-EPHED 60MG/TRIPROLIDI 2.5MG TABLET PO PRN (20:47)
[2018-01-29] MEDS ORDERED: MENTHOL/PHENOL 1 EACH UD MM PRN (20:47)
[2018-01-29] MEDS ORDERED: guaiFENesin/D-METHORPHAN HB 10 ML UNIT-DOSE CUPS PO PRN (20:47)
[2018-01-29] MEDS ORDERED: MAG HYDROX/AL HYDROX/SIMETH 30 ML UNIT-DOSE CUP PO PRN (20:47)
[2018-01-29] MEDS ORDERED: TUBERCULIN PPD 5 TU/0.1ML VIAL ID ONE (22:26)
[2018-01-29] MEDS: MELATONIN 5 MG TABLETS PO SCH (22:26)
[2018-01-29] MEDS: THIAMINE HCL 100 MG TABLET (FP) PO SCH (22:26)
[2018-01-30 03:28] LABS: URINE APPEARANCE CLEAR; URINE BILIRUBIN NEGATIVE (NEGATIVE); URINE BLOOD NEGATIVE (NEGATIVE); URINE COLOR LTYELLOW; URINE GLUCOSE (UA) NEGATIVE (NEGATIVE); URINE KETONE NEGATIVE (NEGATIVE); URINE LEUK ESTERASE NEGATIVE (NEGATIVE); URINE NITRITE NEGATIVE (NEGATIVE); URINE PROTEIN NEGATIVE (NEGATIVE); URINE UROBILINOGEN NEGATIVE mg/dL (0.2-1.0)
--- NOTE | 2018-01-30 06:41 | HP ---
Psychiatrist Admission - Data Date of interview: 01/30/18 Admission source: Drug court Identifying data: This is the first [facility] admission for this 27 years old single male,father of a 10 years old son, employed in construction, domiciled living with girlfriend Medical History: Unremarkable except for history of fracture of left forearm at age 13 from playing bastketball. Smokes 10 cigarettes daily Psychiatric History: Denies history of previous psychiatric treatment Physical/Sexual Abuse/Trauma History: Denies history of emotional, physical or sexual abuse as well as DV relationship. No service Additional Comment: Reports history of previous misdemeanor arrests. He is in drug court Vital Signs: Vital Signs - 24 hr 01/29/18 01/30/18 01/30/18 19:36 02:30 03:30 Temperature 98.5 F Pulse Rate 110 H Respiratory 20 18 18 Rate Blood Pressure 155/90 Allergies/Adverse Reactions: Allergies Allergy/AdvReac Type Severity Reaction Status Date / Time shellfish derived Allergy Severe Difficulty Verified 01/29/18 19:53 Breathing No Known Drug Allergies Allergy Verified 01/29/18 19:53 Date of last physical exam: 01/29/18 Concur with the findings of this exam: Yes - Substance Abuse/Tx History Hx Alcohol Use: No Hx Substance Use: Yes Substance Use Type: Marijuana (Started smoking marijuana at age 12, consumes 4 joints daily. Last smoked on 01/06/18), Opiates (Patient has been atteding [facility] since April 2017 and was last on 90 mg of methadone. He went to care home on 01/08/18 and has been off methadone since. He was released on 01/29 and referred to this facility for inpt rehab) Hx Substance Use Treatment: Yes (3 previous inpt detox dmissions @ [facility]. One inpt rehab @ [facility]) Mental Status Exam - Mental Status Exam Alert and Oriented to: Time, Place, Person Cognitive Function: Fair Patient Appearance: Well Groomed Mood: Depressed Affect: Appropriate Patient Behavior: Cooperative Speech Pattern: Clear Voice Loudness: Normal Thought Process: Intact, Goal Oriented Hallucinations: Denies Suicidal Ideation: Denies Homicidal Ideation: Denies Sleep: Poorly Appetite: Fair Muscle strength/Tone: Normal Gait/Station: Normal Psychiatric Findings - Problem List ([place] 1, 2,3) (1) Cannabis dependence Current Visit: Yes Status: Acute (2) Opioid dependence on agonist therapy Current Visit: Yes Status: Acute (3) Nicotine dependence Current Visit: Yes Status: Chronic (4) Substance-induced sleep disorder Current Visit: Yes Status: Acute - Initial Treatment Plan Initial Treatment Plan: 1) Start Belsomra 10 mf g po HS prn for insomnia. 2) Monitor progress
--- NOTE | 2018-01-30 09:21 | PN ---
S Progress Note Note: PATIENT IS ON MMTP AT [facility] LAST MEDICATED ON 01/08/18 90 MGS SPOKE WITH DALI KAM WILL GIV 30 MGS OF METHADONE TODAY,40 MGS IN AM AND 50 MGS ON 02/01/18 FURTHER EVALUATION AFTER PATIENT WANTED TO BE ON METHADONE PROGRAM
[2018-01-30 09:59] LABS: HEMATOCRIT 44.2 % (35.4-49); HEMOGLOBIN 14.7 GM/dL (11.7-16.9); MCH 29.9 pg (25.7-33.7); MCHC 33.2 g/dl (32.0-35.9); MEAN CELL VOLUME 90.1 fl (80-96); MEAN PLT VOLUME 8.2 fl (7.5-11.1); PLATELET COUNT 266 K/MM3 (134-434); RBC 4.91 M/mm3 (4.00-5.60); RDW 14.4 % (11.9-15.9); WHITE BLOOD COUNT 8.6 K/mm3 (4.0-10.0)
--- NOTE | 2018-01-30 10:01 | EKG ---
Test Reason : Blood Pressure : / mmHG Vent. Rate : 103 BPM Atrial Rate : 103 BPM P-R Int : 120 ms QRS Dur : 096 ms QT Int : 362 ms P-R-T Axes : 066 077 058 degrees QTc Int : 474 ms SINUS TACHYCARDIA INCOMPLETE RBBB WHEN COMPARED WITH ECG OF 04-APR-2017 14:09, NO SIGNIFICANT CHANGE WAS FOUND Confirmed by JOSE ROSE MD ([id number]) on 01/30/2018 10:00:57 AM Referred By: Confirmed By:JOSE ROSE MD
[2018-01-30 10:16] LABS: ALBUMIN 4.1 g/dl (3.4-5.0); ALK PHOS 96 U/L (45-117); ANION GAP 9 (8-16); BILIRUBIN,TOTAL 0.3 mg/dL (0.2-1.0); BLOOD UREA NITROGEN 16 mg/dL (7-18); CALCIUM 8.6 mg/dL (8.5-10.1); CHLORIDE 105 mmol/L (98-107); CO2 32 mmol/L (21-32); CREATININE 0.7 mg/dL (0.7-1.3); GLUCOSE,RANDOM 86 mg/dL (74-106); POTASSIUM 3.9 mmol/L (3.5-5.1); SGOT/AST 13 U/L (15-37); SGPT/ALT 19 U/L (12-78); SODIUM 146 mmol/L (136-145); TOT PROT 7.6 g/dl (6.4-8.2)
[2018-01-30] MEDS: PRENATAL VITAMINS W/ FOLIC ACID TABLET (FP) PO SCH (10:25)
[2018-01-30] MEDS: NICOTINE 14 MG/24 HOURS TOPICAL PATCH TD SCH (10:25)
[2018-01-30] MEDS ORDERED: METHADONE HCL 10 MG TABLET PO ONE (10:30)
--- NOTE | 2018-01-30 13:12 | PN ---
[facility] Progress Note Note: 27 y/o m pt who is mandated to attend rehab presently on methadone 50mg/d . Pt was encouraged by the court to start vivitrol or suboxone while in rehab. The pt had been attending [facility] since 04/14/2017. He stated doing well within OTP refraining from opioid use . He would therefore like to continue methadone maintenance. Pt will continue this form of MAT .
[2018-01-30] MEDS: THIAMINE HCL 100 MG TABLET (FP) PO SCH (21:52)
[2018-01-30] MEDS: MELATONIN 5 MG TABLETS PO SCH (21:52)
[2018-01-30] MEDS: SUVOREXANT 10 MG TABLET PO PRN (21:53)
[2018-01-31] MEDS ORDERED: METHADONE HCL 40 MG DISPERSABLE TABLET PO ONE (06:00)
[2018-01-31] MEDS: NICOTINE 14 MG/24 HOURS TOPICAL PATCH TD SCH (10:16)
[2018-01-31] MEDS: PRENATAL VITAMINS W/ FOLIC ACID TABLET (FP) PO SCH (10:16)
[2018-01-31] MEDS: THIAMINE HCL 100 MG TABLET (FP) PO SCH (21:31)
[2018-01-31] MEDS: MELATONIN 5 MG TABLETS PO SCH (21:31)
[2018-01-31] MEDS: hydrOXYzine PAMOATE 50 MG CAPSULE (FP) PO PRN (21:33)
[2018-01-31] MEDS: SUVOREXANT 10 MG TABLET PO PRN (21:33)
[2018-02-01] MEDS ORDERED: METHADONE HCL 40 MG DISPERSABLE TABLET ONE (05:40)
[2018-02-01] MEDS ORDERED: METHADONE HCL 10 MG TABLET ONE (05:40)
[2018-02-01] MEDS ORDERED: METHADONE HCL 10 MG TABLET PO SCH (06:00)
[2018-02-01] MEDS: hydrOXYzine PAMOATE 50 MG CAPSULE (FP) PO PRN ×5 (06:34→23:07)
[2018-02-01] MEDS: METHADONE 40 MG, METHADONE 10 MG PO SCH (06:34)
[2018-02-01] MEDS: PRENATAL VITAMINS W/ FOLIC ACID TABLET (FP) PO SCH (10:08)
[2018-02-01] MEDS: NICOTINE 14 MG/24 HOURS TOPICAL PATCH TD SCH (10:08)
[2018-02-01] MEDS: THIAMINE HCL 100 MG TABLET (FP) PO SCH (21:47)
[2018-02-01] MEDS: MELATONIN 5 MG TABLETS PO SCH (21:47)
[2018-02-01] MEDS: SUVOREXANT 10 MG TABLET PO PRN (23:07)
[2018-02-02] MEDS ORDERED: METHADONE HCL 10 MG TABLET ONE (04:13)
[2018-02-02] MEDS ORDERED: METHADONE HCL 40 MG DISPERSABLE TABLET ONE (04:13)
[2018-02-02] MEDS: METHADONE 40 MG, METHADONE 10 MG PO SCH (06:25)
[2018-02-02] MEDS: hydrOXYzine PAMOATE 50 MG CAPSULE (FP) PO PRN ×4 (07:57→21:55)
[2018-02-02] MEDS: NICOTINE 14 MG/24 HOURS TOPICAL PATCH TD SCH (09:56)
[2018-02-02] MEDS: PRENATAL VITAMINS W/ FOLIC ACID TABLET (FP) PO SCH (09:56)
--- NOTE | 2018-02-02 11:30 | PN ---
Psychiatric Progress Note Vital Signs: Vital Signs Period Temp Pulse Resp BP Sys/[place] Pulse Ox Last 24 Hr 97.9 F 71 18-18 143/83 Date of Session: 02/02/18 Chief Complaint:: Insomnia HPI: Patient addressing Cannabis Dependence comormid with Opoid Dependence onAgonist Therapy, Nicotine Dependence and Substance-Induced Sleep disorder Current Medications: Active Medications Generic Name Dose Route Start Last Admin Trade Name Freq PRN Reason Stop Dose Admin Acetaminophen 650 mg 01/29/18 20:47 Tylenol - PO Q4H PRN FEVER Al Hydroxide/Mg Hydroxide 30 ml 01/29/18 20:47 01/30/18 00:08 Mylanta Oral Suspension - PO 30 ml Q6H PRN Administration DYSPEPSIA Eucalyptus/Menthol/Phenol/Sorbitol 1 each 01/29/18 20:47 Cepastat Lozenge - MM Q4H PRN SORE THROAT Guaifenesin 10 ml 01/29/18 20:47 Robitussin Dm - PO Q6H PRN COUGH Hydroxyzine Pamoate 50 mg 01/31/18 13:35 02/02/18 07:57 Vistaril - PO 50 mg Q4H PRN Administration ANXIETY Ibuprofen 400 mg 01/29/18 20:47 Motrin - PO Q6H PRN Pain level 4-6 Loperamide HCl 4 mg 01/29/18 20:47 Imodium - PO Q6H PRN DIARRHEA Magnesium Citrate 300 ml 01/29/18 20:47 Citroma - PO Q48H PRN CONSTIPATION Magnesium Hydroxide 30 ml 01/29/18 20:47 Milk Of Magnesia - PO DAILY PRN CONSTIPATION Melatonin 5 mg 01/29/18 22:00 02/01/18 21:47 Melatonin PO 5 mg HS FRANTZ Administration Methadone HCl 40 mg/ Methadone 50 mg 02/01/18 06:00 02/02/18 06:25 HCl 10 mg PO 50 mg DAILY@0600 FRANTZ Administration Nicotine 14 mg 01/30/18 10:00 02/02/18 09:56 Nicoderm Patch - TD 14 mg DAILY FRANTZ Administration Nicotine Polacrilex 2 mg 01/29/18 20:47 Nicorette Gum - BC Q2H PRN NICOTINE REPLACEMENT RX Multivit/Folic Acid/Iron 1 tab 01/30/18 10:00 02/02/18 09:56 Vitamins (Sjr) - PO 1 tab DAILY FRANTZ Administration Pseudoephedrine/Triprolidine 1 combo 01/29/18 20:47 Actifed - PO TID PRN NASAL CONGESTION Thiamine HCl 100 mg 01/29/18 22:00 02/01/18 21:47 Vitamin B1 - PO 100 mg HS FRANTZ Administration Medication(s) Change(s): Increase Belsomra dosage to 15 mg po HS prn for insomnia Current Side Effect: No Lab tests ordered: Yes Lab tests reviewed: Yes Provider note:: Patient reports experiencing difficulty to sleep. Told press writer that he has been sleeping poorly despite taking Besomra 10 mg po HS. Requests that belsomra dosage be increased Total face to face time:: 15 Mental Status Exam - Mental Status Exam Alert and Oriented to: Time, Place, Person Cognitive Function: Fair Patient Appearance: Well Groomed Mood: Hopeful, Euthymic Affect: Appropriate Patient Behavior: Cooperative Speech Pattern: Clear Voice Loudness: Normal Thought Process: Intact, Goal Oriented Thought Disorder: Not Present Hallucinations: Denies Suicidal Ideation: Denies Homicidal Ideation: Denies Insight/Judgement: Fair Sleep: Poorly Appetite: Good Muscle strength/Tone: Normal Gait/Station: Normal Psychiatric Treatment Plan - Problem List (1) Cannabis dependence Current Visit: Yes (2) Opioid dependence on agonist therapy Current Visit: Yes (3) Nicotine dependence Current Visit: Yes (4) Substance-induced sleep disorder Current Visit: Yes Initial treatment plan: 1) Discontinue Belsomra 10 mg po HS prn for insomnia. 2 ) Start Belsomra 15 mg po HS prn for insomnia. 3) Monitor progress
--- NOTE | 2018-02-02 13:40 | PN ---
[facility] Progress Note Note: Patiet presents for adjustment of Methadone. Patient has been on Methadone 50mg x 2 days. Currently on titration regimen. Vital Signs Temperature 97.9 F 02/02/18 07:01 Pulse Rate 71 02/02/18 07:01 Respiratory Rate 18 02/02/18 07:01 Blood Pressure 143/83 02/02/18 07:01 O2 Sat by Pulse Oximetry (%) Laboratory Tests 01/29/18 01/30/18 01/30/18 21:52 07:25 07:25 WBC 8.6 RBC 4.91 Hgb 14.7 Hct 44.2 MCV 90.1 MCH 29.9 MCHC 33.2 RDW 14.4 Plt Count 266 MPV 8.2 Sodium 146 H Potassium 3.9 Chloride 105 Carbon Dioxide 32 D Anion Gap 9 BUN 16 D Creatinine 0.7 D Creat Clearance w eGFR > 60 Random Glucose 86 Calcium 8.6 Total Bilirubin 0.3 D AST 13 L D ALT 19 Alkaline Phosphatase 96 Total Protein 7.6 Albumin 4.1 Urine Color Ltyellow Urine Appearance Clear Urine pH 5.0 D Ur Specific [place] 1.008 Urine Protein Negative Urine Glucose (UA) Negative Urine Ketones Negative Urine Blood Negative Urine Nitrite Negative Urine Bilirubin Negative Urine Urobilinogen Negative Ur Leukocyte Esterase Negative RPR Titer 01/30/18 07:25 WBC RBC Hgb Hct MCV MCH MCHC RDW Plt Count MPV Sodium Potassium Chloride Carbon Dioxide Anion Gap BUN Creatinine Creat Clearance w eGFR Random Glucose Calcium Total Bilirubin AST ALT Alkaline Phosphatase Total Protein Albumin Urine Color Urine Appearance Urine pH Ur Specific [place] Urine Protein Urine Glucose (UA) Urine Ketones Urine Blood Urine Nitrite Urine Bilirubin Urine Urobilinogen Ur Leukocyte Esterase RPR Titer Nonreactive Subj: +anxious, mild sweating, headache. Obj: Awake and oriented x 3, mildly anxious. In NAD. Car: S1S2. Mildly elevated BP. No murmurs or gallops Resp: CTA BL A/P: MAT for Opiod dependence Discussed treatment plan with Dr. Cr and agrees to increase Methadone to 60mg daily Continue to monitor clinically
[2018-02-02] MEDS: THIAMINE HCL 100 MG TABLET (FP) PO SCH (21:49)
[2018-02-02] MEDS: MELATONIN 5 MG TABLETS PO SCH (21:49)
[2018-02-02] MEDS: SUVOREXANT 5 MG TABLET PO PRN (21:49)
[2018-02-02] MEDS ORDERED: SUVOREXANT 10 MG TABLET PO PRN (22:00)
[2018-02-03] MEDS ORDERED: METHADONE HCL 40 MG DISPERSABLE TABLET ONE (04:22)
[2018-02-03] MEDS ORDERED: METHADONE HCL 10 MG TABLET ONE (04:22)
[2018-02-03] MEDS ORDERED: METHADONE HCL 10 MG TABLET PO SCH (06:00)
[2018-02-03] MEDS: hydrOXYzine PAMOATE 50 MG CAPSULE (FP) PO PRN ×4 (06:16→19:06)
[2018-02-03] MEDS: METHADONE 40 MG, METHADONE 20 MG PO SCH (06:16)
[2018-02-03] MEDS: PRENATAL VITAMINS W/ FOLIC ACID TABLET (FP) PO SCH (10:31)
[2018-02-03] MEDS: NICOTINE 14 MG/24 HOURS TOPICAL PATCH TD SCH (10:31)
[2018-02-03] MEDS: THIAMINE HCL 100 MG TABLET (FP) PO SCH (21:52)
[2018-02-03] MEDS: MELATONIN 5 MG TABLETS PO SCH (21:52)
[2018-02-03] MEDS: SUVOREXANT 5 MG TABLET PO PRN (21:53)
[2018-02-04] MEDS ORDERED: METHADONE HCL 10 MG TABLET ONE (04:25)
[2018-02-04] MEDS ORDERED: METHADONE HCL 40 MG DISPERSABLE TABLET ONE (04:25)
[2018-02-04] MEDS: hydrOXYzine PAMOATE 50 MG CAPSULE (FP) PO PRN ×4 (06:23→20:17)
[2018-02-04] MEDS: METHADONE 40 MG, METHADONE 20 MG PO SCH (06:24)
[2018-02-04] MEDS: PRENATAL VITAMINS W/ FOLIC ACID TABLET (FP) PO SCH (10:33)
[2018-02-04] MEDS: NICOTINE 14 MG/24 HOURS TOPICAL PATCH TD SCH (10:33)
[2018-02-04] MEDS: THIAMINE HCL 100 MG TABLET (FP) PO SCH (21:52)
[2018-02-04] MEDS: SUVOREXANT 5 MG TABLET PO PRN (21:52)
[2018-02-04] MEDS: MELATONIN 5 MG TABLETS PO SCH (21:52)
[2018-02-05] MEDS ORDERED: METHADONE HCL 10 MG TABLET ONE (03:20)
[2018-02-05] MEDS ORDERED: METHADONE HCL 40 MG DISPERSABLE TABLET ONE (03:20)
[2018-02-05] MEDS ORDERED: SUVOREXANT 5 MG TABLET PO PRN (06:12)
[2018-02-05] MEDS: METHADONE 40 MG, METHADONE 20 MG PO SCH (06:26)
[2018-02-05] MEDS: hydrOXYzine PAMOATE 50 MG CAPSULE (FP) PO PRN ×4 (06:29→23:17)
--- NOTE | 2018-02-05 07:25 | PN ---
[facility] Progress Note Note: CLIENT ASKING FOR HIS BLOCKING DOSE OF METHADONE 90 MG. HE ATTENDS [facility] OTP, BLOCKING DOSE WAS CONFIRMED. HE WAS ALSO BEING INCREASED DAILY TO REACH HIS BLOCKING DOSE. WILL INCREASE METHADONE BY 10 MG DAILY TO HIS BLOCKING DOSE OF 90 MG
[2018-02-05] MEDS: NICOTINE 14 MG/24 HOURS TOPICAL PATCH TD SCH (10:28)
[2018-02-05] MEDS: PRENATAL VITAMINS W/ FOLIC ACID TABLET (FP) PO SCH (10:28)
[2018-02-05] MEDS: IBUPROFEN 400 MG TABLET (FP) PO PRN (10:30)
[2018-02-05] MEDS: MELATONIN 5 MG TABLETS PO SCH (21:59)
[2018-02-05] MEDS: THIAMINE HCL 100 MG TABLET (FP) PO SCH (21:59)
[2018-02-06] MEDS ORDERED: METHADONE HCL 10 MG TABLET ONE (04:41)
[2018-02-06] MEDS ORDERED: METHADONE HCL 40 MG DISPERSABLE TABLET ONE (04:41)
[2018-02-06] MEDS ORDERED: METHADONE 40 MG, METHADONE 30 MG PO ONE (06:00)
[2018-02-06] MEDS ORDERED: METHADONE HCL 40 MG DISPERSABLE TABLET PO ONE (06:00)
[2018-02-06] MEDS: hydrOXYzine PAMOATE 50 MG CAPSULE (FP) PO PRN ×4 (06:39→22:18)
[2018-02-06] MEDS: PRENATAL VITAMINS W/ FOLIC ACID TABLET (FP) PO SCH (10:30)
[2018-02-06] MEDS: NICOTINE 14 MG/24 HOURS TOPICAL PATCH TD SCH (10:30)
[2018-02-06] MEDS: SUVOREXANT 10 MG TABLET PO PRN (22:18)
[2018-02-06] MEDS: MELATONIN 5 MG TABLETS PO SCH (22:18)
[2018-02-06] MEDS: THIAMINE HCL 100 MG TABLET (FP) PO SCH (22:18)
[2018-02-07] MEDS: hydrOXYzine PAMOATE 50 MG CAPSULE (FP) PO PRN ×3 (07:03→19:20)
[2018-02-07] MEDS ORDERED: METHADONE HCL 40 MG DISPERSABLE TABLET PO ONE (07:26)
[2018-02-07] MEDS: PRENATAL VITAMINS W/ FOLIC ACID TABLET (FP) PO SCH (10:21)
[2018-02-07] MEDS: NICOTINE 14 MG/24 HOURS TOPICAL PATCH TD SCH (10:21)
[2018-02-07] MEDS: THIAMINE HCL 100 MG TABLET (FP) PO SCH (21:47)
[2018-02-07] MEDS: SUVOREXANT 10 MG TABLET PO PRN (21:47)
[2018-02-07] MEDS: MELATONIN 5 MG TABLETS PO SCH (21:47)
[2018-02-08] MEDS ORDERED: METHADONE HCL 40 MG DISPERSABLE TABLET ONE (05:51)
[2018-02-08] MEDS ORDERED: METHADONE HCL 10 MG TABLET ONE (05:51)
[2018-02-08] MEDS ORDERED: METHADONE HCL 10 MG TABLET PO SCH (06:00)
[2018-02-08] MEDS: METHADONE 80 MG, METHADONE 10 MG PO SCH (06:43)
[2018-02-08] MEDS: hydrOXYzine PAMOATE 50 MG CAPSULE (FP) PO PRN ×5 (06:43→23:27)
--- NOTE | 2018-02-08 09:06 | PN ---
[facility] Progress Note Note: history of hypertension used to take medication when he was in the middle school ,non compliance with medication, both parent has hypertension persistent elevation of bp no headache,no sob,no edema of leg lung clear on builder up of methadone now up to normal dose 90 mgs daily Vital Signs Temperature 98.0 F 02/08/18 07:43 Pulse Rate 89 02/08/18 07:43 Respiratory Rate 20 02/08/18 07:43 Blood Pressure 134/112 02/08/18 07:43 O2 Sat by Pulse Oximetry (%) treatment advise to cut down on salt hydrochlorothiazide 25 mgs po daily bp monitoring
[2018-02-08] MEDS: NICOTINE 14 MG/24 HOURS TOPICAL PATCH TD SCH (10:25)
[2018-02-08] MEDS: PRENATAL VITAMINS W/ FOLIC ACID TABLET (FP) PO SCH (10:25)
[2018-02-08] MEDS: HYDROCHLOROTHIAZIDE 25 MG TABLET (FP) PO SCH (10:26)
[2018-02-08] MEDS: IBUPROFEN 400 MG TABLET (FP) PO PRN (19:31)
[2018-02-08] MEDS: MELATONIN 5 MG TABLETS PO SCH (21:47)
[2018-02-08] MEDS: SUVOREXANT 10 MG TABLET PO PRN (21:48)
[2018-02-08] MEDS: THIAMINE HCL 100 MG TABLET (FP) PO SCH (21:48)
[2018-02-09] MEDS ORDERED: METHADONE HCL 10 MG TABLET ONE (03:22)
[2018-02-09] MEDS ORDERED: METHADONE HCL 40 MG DISPERSABLE TABLET ONE (03:23)
[2018-02-09] MEDS: METHADONE 80 MG, METHADONE 10 MG PO SCH (06:30)
[2018-02-09] MEDS: HYDROCHLOROTHIAZIDE 25 MG TABLET (FP) PO SCH (09:37)
[2018-02-09] MEDS: NICOTINE 14 MG/24 HOURS TOPICAL PATCH TD SCH (09:37)
[2018-02-09] MEDS: PRENATAL VITAMINS W/ FOLIC ACID TABLET (FP) PO SCH (09:37)
[2018-02-09] MEDS: hydrOXYzine PAMOATE 50 MG CAPSULE (FP) PO PRN ×3 (10:56→19:43)
--- NOTE | 2018-02-09 15:51 | PN ---
[facility] Progress Note Note: Vital Signs Temperature 97.9 F 02/09/18 07:24 Pulse Rate 117 H 02/09/18 09:10 Respiratory Rate 18 02/09/18 07:24 Blood Pressure 145/102 02/09/18 09:10 O2 Sat by Pulse Oximetry (%) PERSISTENT ELEVATION OF BP TO ADD AMLOIDIPINE 10 MGS PO DAILY MARILIN MONITORING
[2018-02-09] MEDS: amLODIPine BESYLATE 10 MG TABLET (FP) PO SCH (17:02)
[2018-02-09] MEDS: THIAMINE HCL 100 MG TABLET (FP) PO SCH (21:42)
[2018-02-09] MEDS: MELATONIN 5 MG TABLETS PO SCH (21:42)
[2018-02-09] MEDS: SUVOREXANT 10 MG TABLET PO PRN (21:42)
[2018-02-10] MEDS: hydrOXYzine PAMOATE 50 MG CAPSULE (FP) PO PRN ×4 (00:19→22:28)
[2018-02-10] MEDS ORDERED: METHADONE HCL 10 MG TABLET ONE (03:09)
[2018-02-10] MEDS ORDERED: METHADONE HCL 40 MG DISPERSABLE TABLET ONE (03:09)
[2018-02-10] MEDS: METHADONE 80 MG, METHADONE 10 MG PO SCH (06:28)
[2018-02-10] MEDS: PRENATAL VITAMINS W/ FOLIC ACID TABLET (FP) PO SCH (09:21)
[2018-02-10] MEDS: HYDROCHLOROTHIAZIDE 25 MG TABLET (FP) PO SCH (09:21)
[2018-02-10] MEDS: amLODIPine BESYLATE 10 MG TABLET (FP) PO SCH (09:23)
[2018-02-10] MEDS: NICOTINE 14 MG/24 HOURS TOPICAL PATCH TD SCH (09:23)
--- NOTE | 2018-02-10 14:08 | PN ---
[facility] Progress Note Note: Vital Signs Temperature 97.8 F 02/10/18 07:14 Pulse Rate 112 H 02/10/18 09:18 Respiratory Rate 18 02/10/18 07:14 Blood Pressure 151/98 02/10/18 09:18 O2 Sat by Pulse Oximetry (%) Laboratory Last Values WBC 8.6 K/mm3 (4.0-10.0) 01/30/18 07:25 RBC 4.91 M/mm3 (4.00-5.60) 01/30/18 07:25 Hgb 14.7 GM/dL (11.7-16.9) 01/30/18 07:25 Hct 44.2 % (35.4-49) 01/30/18 07:25 MCV 90.1 fl (80-96) 01/30/18 07:25 MCH 29.9 pg (25.7-33.7) 01/30/18 07:25 MCHC 33.2 g/dl (32.0-35.9) 01/30/18 07:25 RDW 14.4 % (11.9-15.9) 01/30/18 07:25 Plt Count 266 K/MM3 (134-434) 01/30/18 07:25 MPV 8.2 fl (7.5-11.1) 01/30/18 07:25 Sodium 146 mmol/L (136-145) H 01/30/18 07:25 Potassium 3.9 mmol/L (3.5-5.1) 01/30/18 07:25 Chloride 105 mmol/L (98-107) 01/30/18 07:25 Carbon Dioxide 32 mmol/L (21-32) D 01/30/18 07:25 Anion Gap 9 (8-16) 01/30/18 07:25 BUN 16 mg/dL (7-18) D 01/30/18 07:25 Creatinine 0.7 mg/dL (0.7-1.3) D 01/30/18 07:25 Creat Clearance w eGFR > 60 (>60) 01/30/18 07:25 Random Glucose 86 mg/dL (74-106) 01/30/18 07:25 Calcium 8.6 mg/dL (8.5-10.1) 01/30/18 07:25 Total Bilirubin 0.3 mg/dL (0.2-1.0) D 01/30/18 07:25 AST 13 U/L (15-37) L D 01/30/18 07:25 ALT 19 U/L (12-78) 01/30/18 07:25 Alkaline Phosphatase 96 U/L (45-117) 01/30/18 07:25 Total Protein 7.6 g/dl (6.4-8.2) 01/30/18 07:25 Albumin 4.1 g/dl (3.4-5.0) 01/30/18 07:25 Urine Color Ltyellow 01/29/18 21:52 Urine Appearance Clear 01/29/18 21:52 Urine pH 5.0 (5.0-8.0) D 01/29/18 21:52 Ur Specific [place] 1.008 (1.001-1.035) 01/29/18 21:52 Urine Protein Negative (NEGATIVE) 01/29/18 21:52 Urine Glucose (UA) Negative (NEGATIVE) 01/29/18 21:52 Urine Ketones Negative (NEGATIVE) 01/29/18 21:52 Urine Blood Negative (NEGATIVE) 01/29/18 21:52 Urine Nitrite Negative (NEGATIVE) 01/29/18 21:52 Urine Bilirubin Negative (NEGATIVE) 01/29/18 21:52 Urine Urobilinogen Negative mg/dL (0.2-1.0) 01/29/18 21:52 Ur Leukocyte Esterase Negative (NEGATIVE) 01/29/18 21:52 RPR Titer Nonreactive (NONREACTIVE) 01/30/18 07:25 Reports Amlodipine made patient feel tachycardic and anxious and made his BP elevate. Reports as child he was on catapress. denies headache, parathesia , SOB or chest pains. A/P Patient AOx3 x self directing Normal HR and RR No adventitious breaths sounds ambulating in the unit Plan: Start Losatan 50 mg QD d/c Norvasc Increase fluids continue to monitor
[2018-02-10] MEDS ORDERED: cloNIDine HCL 0.1 MG TABLET PO ONE (22:00)
[2018-02-10] MEDS: THIAMINE HCL 100 MG TABLET (FP) PO SCH (22:27)
[2018-02-10] MEDS: MELATONIN 5 MG TABLETS PO SCH (22:27)
[2018-02-11] MEDS ORDERED: METHADONE HCL 40 MG DISPERSABLE TABLET ONE (04:47)
[2018-02-11] MEDS ORDERED: METHADONE HCL 10 MG TABLET ONE (04:47)
[2018-02-11] MEDS: hydrOXYzine PAMOATE 50 MG CAPSULE (FP) PO PRN ×4 (06:33→21:59)
[2018-02-11] MEDS: METHADONE 80 MG, METHADONE 10 MG PO SCH (06:33)
[2018-02-11] MEDS: HYDROCHLOROTHIAZIDE 25 MG TABLET (FP) PO SCH (10:31)
[2018-02-11] MEDS: PRENATAL VITAMINS W/ FOLIC ACID TABLET (FP) PO SCH (10:31)
[2018-02-11] MEDS: LOSARTAN POTASSIUM 50 MG TABLET (FP) PO SCH (10:31)
[2018-02-11] MEDS: NICOTINE 14 MG/24 HOURS TOPICAL PATCH TD SCH (10:32)
[2018-02-11] MEDS: THIAMINE HCL 100 MG TABLET (FP) PO SCH (21:59)
[2018-02-11] MEDS: SUVOREXANT 10 MG TABLET PO PRN (21:59)
[2018-02-11] MEDS: MELATONIN 5 MG TABLETS PO SCH (21:59)
[2018-02-12] MEDS ORDERED: METHADONE HCL 40 MG DISPERSABLE TABLET ONE (04:30)
[2018-02-12] MEDS ORDERED: METHADONE HCL 10 MG TABLET ONE (04:30)
[2018-02-12] MEDS: METHADONE 80 MG, METHADONE 10 MG PO SCH (06:29)
[2018-02-12] MEDS: hydrOXYzine PAMOATE 50 MG CAPSULE (FP) PO PRN ×4 (06:29→20:06)
[2018-02-12] MEDS: LOSARTAN POTASSIUM 50 MG TABLET (FP) PO SCH (10:28)
[2018-02-12] MEDS: HYDROCHLOROTHIAZIDE 25 MG TABLET (FP) PO SCH (10:28)
[2018-02-12] MEDS: PRENATAL VITAMINS W/ FOLIC ACID TABLET (FP) PO SCH (10:28)
[2018-02-12] MEDS: NICOTINE 14 MG/24 HOURS TOPICAL PATCH TD SCH (10:29)
[2018-02-12] MEDS: MELATONIN 5 MG TABLETS PO SCH (22:51)
[2018-02-12] MEDS: SUVOREXANT 10 MG TABLET PO PRN (22:51)
[2018-02-12] MEDS: THIAMINE HCL 100 MG TABLET (FP) PO SCH (22:54)
[2018-02-13] MEDS ORDERED: METHADONE HCL 10 MG TABLET ONE (04:24)
[2018-02-13] MEDS ORDERED: METHADONE HCL 40 MG DISPERSABLE TABLET ONE (04:24)
[2018-02-13] MEDS: hydrOXYzine PAMOATE 50 MG CAPSULE (FP) PO PRN ×4 (06:19→21:16)
[2018-02-13] MEDS: METHADONE 80 MG, METHADONE 10 MG PO SCH (06:19)
[2018-02-13] MEDS: HYDROCHLOROTHIAZIDE 25 MG TABLET (FP) PO SCH (10:42)
[2018-02-13] MEDS: PRENATAL VITAMINS W/ FOLIC ACID TABLET (FP) PO SCH (10:43)
[2018-02-13] MEDS: LOSARTAN POTASSIUM 50 MG TABLET (FP) PO SCH (10:43)
[2018-02-13] MEDS: NICOTINE 14 MG/24 HOURS TOPICAL PATCH TD SCH (10:43)
[2018-02-13] MEDS: MELATONIN 5 MG TABLETS PO SCH (21:16)
[2018-02-13] MEDS: SUVOREXANT 10 MG TABLET PO PRN (21:16)
[2018-02-13] MEDS: THIAMINE HCL 100 MG TABLET (FP) PO SCH (21:16)
[2018-02-14] MEDS ORDERED: METHADONE HCL 10 MG TABLET ONE (03:08)
[2018-02-14] MEDS ORDERED: METHADONE HCL 40 MG DISPERSABLE TABLET ONE (03:09)
[2018-02-14] MEDS: METHADONE 80 MG, METHADONE 10 MG PO SCH (06:32)
[2018-02-14] MEDS: hydrOXYzine PAMOATE 50 MG CAPSULE (FP) PO PRN ×4 (06:32→22:19)
[2018-02-14] MEDS: PRENATAL VITAMINS W/ FOLIC ACID TABLET (FP) PO SCH (10:07)
[2018-02-14] MEDS: NICOTINE 14 MG/24 HOURS TOPICAL PATCH TD SCH (10:07)
[2018-02-14] MEDS: LOSARTAN POTASSIUM 50 MG TABLET (FP) PO SCH (10:07)
[2018-02-14] MEDS: HYDROCHLOROTHIAZIDE 25 MG TABLET (FP) PO SCH (10:07)
[2018-02-14] MEDS: MELATONIN 5 MG TABLETS PO SCH (22:19)
[2018-02-14] MEDS: THIAMINE HCL 100 MG TABLET (FP) PO SCH (22:19)
[2018-02-14] MEDS: SUVOREXANT 10 MG TABLET PO PRN (22:22)
[2018-02-15] MEDS ORDERED: METHADONE HCL 10 MG TABLET ONE (02:51)
[2018-02-15] MEDS ORDERED: METHADONE HCL 40 MG DISPERSABLE TABLET ONE (02:51)
[2018-02-15] MEDS: hydrOXYzine PAMOATE 50 MG CAPSULE (FP) PO PRN ×5 (06:21→23:45)
[2018-02-15] MEDS: METHADONE 80 MG, METHADONE 10 MG PO SCH (06:21)
[2018-02-15] MEDS: LOSARTAN POTASSIUM 50 MG TABLET (FP) PO SCH (10:28)
[2018-02-15] MEDS: NICOTINE 14 MG/24 HOURS TOPICAL PATCH TD SCH (10:28)
[2018-02-15] MEDS: PRENATAL VITAMINS W/ FOLIC ACID TABLET (FP) PO SCH (10:28)
[2018-02-15] MEDS: HYDROCHLOROTHIAZIDE 25 MG TABLET (FP) PO SCH (10:28)
[2018-02-15] MEDS: THIAMINE HCL 100 MG TABLET (FP) PO SCH (22:11)
[2018-02-15] MEDS: SUVOREXANT 10 MG TABLET PO PRN (22:11)
[2018-02-15] MEDS: MELATONIN 5 MG TABLETS PO SCH (22:11)
[2018-02-16] MEDS ORDERED: METHADONE HCL 40 MG DISPERSABLE TABLET ONE (04:34)
[2018-02-16] MEDS ORDERED: METHADONE HCL 10 MG TABLET ONE (04:34)
[2018-02-16] MEDS: METHADONE 80 MG, METHADONE 10 MG PO SCH (06:30)
[2018-02-16] MEDS: hydrOXYzine PAMOATE 50 MG CAPSULE (FP) PO PRN ×5 (06:30→21:50)
[2018-02-16] MEDS: NICOTINE 14 MG/24 HOURS TOPICAL PATCH TD SCH (10:29)
[2018-02-16] MEDS: HYDROCHLOROTHIAZIDE 25 MG TABLET (FP) PO SCH (10:29)
[2018-02-16] MEDS: LOSARTAN POTASSIUM 50 MG TABLET (FP) PO SCH (10:29)
[2018-02-16] MEDS: PRENATAL VITAMINS W/ FOLIC ACID TABLET (FP) PO SCH (10:30)
[2018-02-16] MEDS: IBUPROFEN 400 MG TABLET (FP) PO PRN (17:53)
[2018-02-16] MEDS: THIAMINE HCL 100 MG TABLET (FP) PO SCH (21:50)
[2018-02-16] MEDS: SUVOREXANT 10 MG TABLET PO PRN (21:50)
[2018-02-16] MEDS: MELATONIN 5 MG TABLETS PO SCH (21:50)
[2018-02-17] MEDS ORDERED: METHADONE HCL 10 MG TABLET ONE (06:32)
[2018-02-17] MEDS: hydrOXYzine PAMOATE 50 MG CAPSULE (FP) PO PRN ×4 (06:33→21:51)
[2018-02-17] MEDS ORDERED: METHADONE HCL 40 MG DISPERSABLE TABLET ONE (06:33)
[2018-02-17] MEDS: METHADONE 80 MG, METHADONE 10 MG PO SCH (06:33)
[2018-02-17] MEDS: NICOTINE 14 MG/24 HOURS TOPICAL PATCH TD SCH (10:30)
[2018-02-17] MEDS: HYDROCHLOROTHIAZIDE 25 MG TABLET (FP) PO SCH (10:30)
[2018-02-17] MEDS: NICOTINE POLACRILEX 2 MG GUM BC PRN (10:30)
[2018-02-17] MEDS: LOSARTAN POTASSIUM 50 MG TABLET (FP) PO SCH (10:30)
[2018-02-17] MEDS: PRENATAL VITAMINS W/ FOLIC ACID TABLET (FP) PO SCH (10:30)
[2018-02-17] MEDS: MELATONIN 5 MG TABLETS PO SCH (21:51)
[2018-02-17] MEDS: THIAMINE HCL 100 MG TABLET (FP) PO SCH (21:51)
[2018-02-17] MEDS: SUVOREXANT 10 MG TABLET PO PRN (21:51)
[2018-02-18] MEDS ORDERED: METHADONE HCL 40 MG DISPERSABLE TABLET ONE (04:21)
[2018-02-18] MEDS ORDERED: METHADONE HCL 10 MG TABLET ONE (04:21)
[2018-02-18] MEDS: hydrOXYzine PAMOATE 50 MG CAPSULE (FP) PO PRN ×4 (06:28→21:51)
[2018-02-18] MEDS: METHADONE 80 MG, METHADONE 10 MG PO SCH (06:30)
[2018-02-18] MEDS: HYDROCHLOROTHIAZIDE 25 MG TABLET (FP) PO SCH (10:36)
[2018-02-18] MEDS: NICOTINE 14 MG/24 HOURS TOPICAL PATCH TD SCH (10:36)
[2018-02-18] MEDS: PRENATAL VITAMINS W/ FOLIC ACID TABLET (FP) PO SCH (10:36)
[2018-02-18] MEDS: LOSARTAN POTASSIUM 50 MG TABLET (FP) PO SCH (10:37)
[2018-02-18] MEDS: IBUPROFEN 400 MG TABLET (FP) PO PRN (10:38)
[2018-02-18] MEDS: MELATONIN 5 MG TABLETS PO SCH (21:51)
[2018-02-18] MEDS: SUVOREXANT 10 MG TABLET PO PRN (21:51)
[2018-02-18] MEDS: THIAMINE HCL 100 MG TABLET (FP) PO SCH (21:51)
[2018-02-19] MEDS ORDERED: METHADONE HCL 10 MG TABLET ONE (05:46)
[2018-02-19] MEDS ORDERED: METHADONE HCL 40 MG DISPERSABLE TABLET ONE (05:47)
[2018-02-19] MEDS: METHADONE 80 MG, METHADONE 10 MG PO SCH (06:29)
[2018-02-19] MEDS: hydrOXYzine PAMOATE 50 MG CAPSULE (FP) PO PRN ×4 (06:30→22:18)
[2018-02-19] MEDS: HYDROCHLOROTHIAZIDE 25 MG TABLET (FP) PO SCH (10:18)
[2018-02-19] MEDS: PRENATAL VITAMINS W/ FOLIC ACID TABLET (FP) PO SCH (10:18)
[2018-02-19] MEDS: NICOTINE 14 MG/24 HOURS TOPICAL PATCH TD SCH (10:18)
[2018-02-19] MEDS: NICOTINE POLACRILEX 2 MG GUM BC PRN (10:18)
[2018-02-19] MEDS: LOSARTAN POTASSIUM 50 MG TABLET (FP) PO SCH (10:18)
[2018-02-19] MEDS: THIAMINE HCL 100 MG TABLET (FP) PO SCH (22:18)
[2018-02-19] MEDS: MELATONIN 5 MG TABLETS PO SCH (22:18)
[2018-02-19] MEDS: SUVOREXANT 10 MG TABLET PO PRN (22:20)
[2018-02-20] MEDS ORDERED: METHADONE HCL 10 MG TABLET ONE (04:13)
[2018-02-20] MEDS ORDERED: METHADONE HCL 40 MG DISPERSABLE TABLET ONE (04:13)
[2018-02-20] MEDS: METHADONE 80 MG, METHADONE 10 MG PO SCH (06:40)
[2018-02-20] MEDS: hydrOXYzine PAMOATE 50 MG CAPSULE (FP) PO PRN ×4 (06:40→19:35)
[2018-02-20] MEDS: PRENATAL VITAMINS W/ FOLIC ACID TABLET (FP) PO SCH (10:26)
[2018-02-20] MEDS: NICOTINE 14 MG/24 HOURS TOPICAL PATCH TD SCH (10:26)
[2018-02-20] MEDS: LOSARTAN POTASSIUM 50 MG TABLET (FP) PO SCH (10:26)
[2018-02-20] MEDS: HYDROCHLOROTHIAZIDE 25 MG TABLET (FP) PO SCH (10:26)
[2018-02-20] MEDS: THIAMINE HCL 100 MG TABLET (FP) PO SCH (21:37)
[2018-02-20] MEDS: MELATONIN 5 MG TABLETS PO SCH (21:37)
[2018-02-20] MEDS: SUVOREXANT 10 MG TABLET PO PRN (21:37)
[2018-02-21] MEDS ORDERED: METHADONE HCL 40 MG DISPERSABLE TABLET ONE (04:04)
[2018-02-21] MEDS ORDERED: METHADONE HCL 10 MG TABLET ONE (04:04)
[2018-02-21] MEDS: METHADONE 80 MG, METHADONE 10 MG PO SCH (06:14)
[2018-02-21] MEDS: hydrOXYzine PAMOATE 50 MG CAPSULE (FP) PO PRN ×4 (06:14→21:53)
[2018-02-21] MEDS: NICOTINE 14 MG/24 HOURS TOPICAL PATCH TD SCH (10:17)
[2018-02-21] MEDS: LOSARTAN POTASSIUM 50 MG TABLET (FP) PO SCH (10:17)
[2018-02-21] MEDS: PRENATAL VITAMINS W/ FOLIC ACID TABLET (FP) PO SCH (10:17)
[2018-02-21] MEDS: HYDROCHLOROTHIAZIDE 25 MG TABLET (FP) PO SCH (10:18)
[2018-02-21] MEDS: SUVOREXANT 10 MG TABLET PO PRN (21:53)
[2018-02-21] MEDS: THIAMINE HCL 100 MG TABLET (FP) PO SCH (21:53)
[2018-02-21] MEDS: MELATONIN 5 MG TABLETS PO SCH (21:53)
[2018-02-22] MEDS ORDERED: METHADONE HCL 10 MG TABLET ONE (04:14)
[2018-02-22] MEDS ORDERED: METHADONE HCL 40 MG DISPERSABLE TABLET ONE (04:14)
[2018-02-22] MEDS: METHADONE 80 MG, METHADONE 10 MG PO SCH (06:17)
[2018-02-22] MEDS: hydrOXYzine PAMOATE 50 MG CAPSULE (FP) PO PRN ×3 (06:17→21:41)
[2018-02-22] MEDS: PRENATAL VITAMINS W/ FOLIC ACID TABLET (FP) PO SCH (10:08)
[2018-02-22] MEDS: LOSARTAN POTASSIUM 50 MG TABLET (FP) PO SCH (10:08)
[2018-02-22] MEDS: NICOTINE 14 MG/24 HOURS TOPICAL PATCH TD SCH (10:08)
[2018-02-22] MEDS: HYDROCHLOROTHIAZIDE 25 MG TABLET (FP) PO SCH (10:10)
[2018-02-22] MEDS: MELATONIN 5 MG TABLETS PO SCH (21:41)
[2018-02-22] MEDS: THIAMINE HCL 100 MG TABLET (FP) PO SCH (21:42)
[2018-02-23] MEDS ORDERED: METHADONE HCL 10 MG TABLET ONE (03:11)
[2018-02-23] MEDS ORDERED: METHADONE HCL 40 MG DISPERSABLE TABLET ONE (03:11)
[2018-02-23] MEDS: hydrOXYzine PAMOATE 50 MG CAPSULE (FP) PO PRN ×3 (06:40→19:05)
[2018-02-23] MEDS: METHADONE 80 MG, METHADONE 10 MG PO SCH (06:40)
[2018-02-23] MEDS: HYDROCHLOROTHIAZIDE 25 MG TABLET (FP) PO SCH (10:01)
[2018-02-23] MEDS: LOSARTAN POTASSIUM 50 MG TABLET (FP) PO SCH (10:01)
[2018-02-23] MEDS: NICOTINE 14 MG/24 HOURS TOPICAL PATCH TD SCH (10:01)
[2018-02-23] MEDS: PRENATAL VITAMINS W/ FOLIC ACID TABLET (FP) PO SCH (10:01)
[2018-02-23] MEDS: NICOTINE POLACRILEX 2 MG GUM BC PRN (10:02)
[2018-02-23] MEDS: SUVOREXANT 15 MG TABLET PO PRN (21:34)
[2018-02-23] MEDS: MELATONIN 5 MG TABLETS PO SCH (21:34)
[2018-02-23] MEDS: THIAMINE HCL 100 MG TABLET (FP) PO SCH (21:34)
[2018-02-24] MEDS ORDERED: METHADONE HCL 40 MG DISPERSABLE TABLET ONE (05:09)
[2018-02-24] MEDS ORDERED: METHADONE HCL 10 MG TABLET ONE (05:09)
[2018-02-24] MEDS: METHADONE 80 MG, METHADONE 10 MG PO SCH (06:16)
[2018-02-24] MEDS: hydrOXYzine PAMOATE 50 MG CAPSULE (FP) PO PRN ×4 (06:17→19:17)
--- NOTE | 2018-02-24 07:06 | PN ---
Psychiatric Progress Note Vital Signs: Vital Signs Period Temp Pulse Resp BP Sys/[place] Pulse Ox Last 24 Hr 98 F-98.1 F 71-104 18-18 124-143/81-86 Date of Session: 02/24/18 Chief Complaint:: Discharge Note HPI: Patient addressing Cannabis Dependence comorbid with Opioid Dependence on Agonist Therapy, Nicotine Dependence and Substance-induced Sleep Disorder Current Medications: Active Medications Generic Name Dose Route Start Last Admin Trade Name Freq PRN Reason Stop Dose Admin Acetaminophen 650 mg 01/29/18 20:47 02/10/18 09:22 Tylenol - PO 650 mg Q4H PRN Administration FEVER Al Hydroxide/Mg Hydroxide 30 ml 01/29/18 20:47 01/30/18 00:08 Mylanta Oral Suspension - PO 30 ml Q6H PRN Administration DYSPEPSIA Eucalyptus/Menthol/Phenol/Sorbitol 1 each 01/29/18 20:47 Cepastat Lozenge - MM Q4H PRN SORE THROAT Guaifenesin 10 ml 01/29/18 20:47 Robitussin Dm - PO Q6H PRN COUGH Hydrochlorothiazide 25 mg 02/08/18 10:00 02/23/18 10:01 Hctz - PO 25 mg DAILY FRANTZ Administration Hydroxyzine Pamoate 50 mg 01/31/18 13:35 02/24/18 06:17 Vistaril - PO 50 mg Q4H PRN Administration ANXIETY Ibuprofen 400 mg 01/29/18 20:47 02/18/18 10:38 Motrin - PO 400 mg Q6H PRN Administration Pain level 4-6 Loperamide HCl 4 mg 01/29/18 20:47 Imodium - PO Q6H PRN DIARRHEA Losartan Potassium 50 mg 02/11/18 10:00 02/23/18 10:01 Cozaar - PO 50 mg DAILY FRANTZ Administration Magnesium Citrate 300 ml 01/29/18 20:47 Citroma - PO Q48H PRN CONSTIPATION Magnesium Hydroxide 30 ml 01/29/18 20:47 Milk Of Magnesia - PO DAILY PRN CONSTIPATION Melatonin 5 mg 01/29/18 22:00 02/23/18 21:34 Melatonin PO 5 mg HS FRANTZ Administration Methadone HCl 80 mg/ Methadone 90 mg 02/19/18 06:00 02/24/18 06:16 HCl 10 mg PO 02/26/18 05:59 90 mg DAILY@0600 FRANTZ Administration Nicotine 14 mg 01/30/18 10:00 02/23/18 10:01 Nicoderm Patch - TD Not Given DAILY FRANTZ Nicotine Polacrilex 2 mg 01/29/18 20:47 02/23/18 10:02 Nicorette Gum - BC 2 mg Q2H PRN Administration NICOTINE REPLACEMENT RX Multivit/Folic Acid/Iron 1 tab 01/30/18 10:00 02/23/18 10:01 Vitamins (Sjr) - PO 1 tab DAILY FRANTZ Administration Pseudoephedrine/Triprolidine 1 combo 01/29/18 20:47 Actifed - PO TID PRN NASAL CONGESTION Suvorexant 15 mg 02/23/18 22:00 02/23/18 21:34 Belsomra PO 02/26/18 21:59 15 mg HS PRN Administration INSOMNIA Thiamine HCl 100 mg 01/29/18 22:00 02/23/18 21:34 Vitamin B1 - PO 100 mg HS FRANTZ Administration Current Side Effect: No Lab tests ordered: Yes Lab tests reviewed: Yes Provider note:: Patient will complete this program on 02/25/18. He has met his treatment goals and will continue to address his issues in outpatient treatment at [facility]. Told continuity writer that from his participation in this program , he has learned to be [facility]. He responded well to Belsomra 15 mg po HS prn for insomnia. He is stable for discharge on 02/25/18 Total face to face time:: 35 Mental Status Exam - Mental Status Exam Alert and Oriented to: Time, Place, Person Cognitive Function: Fair Patient Appearance: Well Groomed Mood: Hopeful, Euthymic Affect: Appropriate Patient Behavior: Cooperative Speech Pattern: Clear Voice Loudness: Normal Thought Process: Intact, Goal Oriented Thought Disorder: Not Present Hallucinations: Denies Suicidal Ideation: Denies Homicidal Ideation: Denies Insight/Judgement: Fair Sleep: Fair Appetite: Good Muscle strength/Tone: Normal Gait/Station: Normal Psychiatric Treatment Plan - Problem List (1) Cannabis dependence Current Visit: Yes (2) Opioid dependence on agonist therapy Current Visit: Yes (3) Nicotine dependence Current Visit: Yes (4) Substance-induced sleep disorder Current Visit: Yes Initial treatment plan: Patient will be discharged tomorrow and referred to [facility] for outpatient treatment
[2018-02-24] MEDS: NICOTINE 14 MG/24 HOURS TOPICAL PATCH TD SCH (10:07)
[2018-02-24] MEDS: LOSARTAN POTASSIUM 50 MG TABLET (FP) PO SCH (10:07)
[2018-02-24] MEDS: PRENATAL VITAMINS W/ FOLIC ACID TABLET (FP) PO SCH (10:07)
[2018-02-24] MEDS: HYDROCHLOROTHIAZIDE 25 MG TABLET (FP) PO SCH (10:07)
[2018-02-24] MEDS: NICOTINE POLACRILEX 2 MG GUM BC PRN (10:08)
[2018-02-24] MEDS: MELATONIN 5 MG TABLETS PO SCH (21:54)
[2018-02-24] MEDS: SUVOREXANT 15 MG TABLET PO PRN (21:56)
[2018-02-24] MEDS: THIAMINE HCL 100 MG TABLET (FP) PO SCH (22:36)
[2018-02-25] MEDS ORDERED: METHADONE HCL 40 MG DISPERSABLE TABLET ONE (04:13)
[2018-02-25] MEDS ORDERED: METHADONE HCL 10 MG TABLET ONE (04:13)
[2018-02-25] MEDS: hydrOXYzine PAMOATE 50 MG CAPSULE (FP) PO PRN (06:03)
[2018-02-25] MEDS: METHADONE 80 MG, METHADONE 10 MG PO SCH (06:03)
[2018-02-25 07:05] VITALS: BP 120/71; PULSE 74; TEMP 97.9
== END 2018-02-25 09:05 | disposition home or self-care (01) | DRG 772 ==
LOC: YASAS 13:40 → Y3W 19:41
PROVIDERS: ADMIT Psychiatry & Neurology Psychiatry; ATTEND Psychiatry & Neurology Psychiatry
PROC: HZ42ZZZ Group Counseling for Substance Abuse Treatment, Cognitive-Behavioral (ICD-10-PCS; principal; 2018-01-29)
DX: F11.20 Opioid dependence, uncomplicated (principal); F12.20 Cannabis dependence, uncomplicated; F17.210 Nicotine dependence, cigarettes, uncomplicated; F19.282 Other psychoactive substance dependence with psychoactive substance-induced sleep disorder; F41.9 Anxiety disorder, unspecified; I10 Essential (primary) hypertension
CPT/HCPCS: 36415; 80053; 81003; 85027; 86593; 93005; 93010; J0735

== ENCOUNTER 2019-04-26 08:59 | Inpatient (IN) | payer OTHER ==
[2019-04-26 10:11] VITALS: BMI 23.2
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
[2019-04-26] MEDS ORDERED: P-EPHED 60MG/TRIPROLIDI 2.5MG TABLET PO PRN (11:17)
[2019-04-26] MEDS ORDERED: IBUPROFEN 400 MG TABLET (FP) PO PRN (11:17)
[2019-04-26] MEDS ORDERED: ACETAMINOPHEN 325 MG TABLET (FP) PO PRN (11:17)
[2019-04-26] MEDS ORDERED: MAG HYDROX/AL HYDROX/SIMETH 30 ML UNIT-DOSE CUP PO PRN (11:17)
[2019-04-26] MEDS ORDERED: MENTHOL/PHENOL 1 EACH UD MM PRN (11:17)
[2019-04-26] MEDS ORDERED: MAGNESIUM HYDROX 2400MG/30ML ORAL SUSPENSION 30 ML CUP PO PRN (11:17)
[2019-04-26] MEDS ORDERED: LOPERAMIDE HCL 2 MG CAPSULE PO PRN (11:17)
[2019-04-26] MEDS ORDERED: MAGNESIUM CITRATE 300 ML BOTTLE PO PRN (11:17)
[2019-04-26] MEDS ORDERED: guaiFENesin 200 MG/10 ML 10 ML UNIT-DOSE CUPS PO PRN (11:17)
[2019-04-26] MEDS ORDERED: METHADONE HCL 10 MG TABLET PO ONE (12:15)
[2019-04-26] MEDS: NICOTINE 21 MG/24 HOURS TOPICAL PATCH TD SCH (14:08)
[2019-04-26] MEDS: LOSARTAN POTASSIUM 50 MG TABLET (FP) PO SCH (14:08)
[2019-04-26] MEDS: HYDROCHLOROTHIAZIDE 25 MG TABLET (FP) PO SCH (14:08)
[2019-04-26 14:46] LABS: ALBUMIN 4.5 g/dl (3.4-5.0); BILIRUBIN,TOTAL 0.3 mg/dL (0.2-1); BLOOD UREA NITROGEN 15.3 mg/dL (7-18); CALCIUM 9.1 mg/dL (8.5-10.1); CREATININE 0.8 mg/dL (0.55-1.3); POTASSIUM 4.1 mmol/L (3.5-5.1); TOT PROT 7.8 g/dl (6.4-8.2)
[2019-04-26 14:47] LABS: HEMATOCRIT 39.8 % (35.4-49); HEMOGLOBIN 13.5 GM/dL (11.7-16.9); MCH 29.9 pg (25.7-33.7); MCHC 33.8 g/dl (32.0-35.9); MEAN CELL VOLUME 88.4 fl (80-96); MEAN PLT VOLUME 8.2 fl (7.5-11.1); RDW 14.4 % (11.9-15.9)
[2019-04-26 15:01] LABS: PLATELET COUNT 295 K/MM3 (134-434)
[2019-04-26] MEDS: NICOTINE POLACRILEX 2 MG GUM BC PRN (19:09)
[2019-04-26] MEDS: THIAMINE HCL 100 MG TABLET (FP) PO SCH (21:28)
[2019-04-26] MEDS: hydrOXYzine PAMOATE 50 MG CAPSULE (FP) PO PRN (21:28)
[2019-04-26] MEDS: MELATONIN 5 MG TABLETS PO PRN (21:28)
[2019-04-27] MEDS ORDERED: METHADONE HCL 40 MG DISPERSABLE TABLET PO ONE (06:00)
[2019-04-27] MEDS: NICOTINE POLACRILEX 2 MG GUM BC PRN ×3 (09:05→21:28)
[2019-04-27] MEDS: PRENATAL VITAMINS W/ FOLIC ACID TABLET (FP) PO SCH (09:41)
[2019-04-27] MEDS: NICOTINE 21 MG/24 HOURS TOPICAL PATCH TD SCH (09:41)
[2019-04-27] MEDS: LOSARTAN POTASSIUM 50 MG TABLET (FP) PO SCH (09:41)
[2019-04-27] MEDS: HYDROCHLOROTHIAZIDE 25 MG TABLET (FP) PO SCH (09:41)
[2019-04-27] MEDS: hydrOXYzine PAMOATE 50 MG CAPSULE (FP) PO PRN ×3 (09:42→21:27)
[2019-04-27 21:11] LABS: URINE APPEARANCE TURBID; URINE BILIRUBIN NEGATIVE (NEGATIVE); URINE COLOR YELLOW; URINE GLUCOSE (UA) NEGATIVE (NEGATIVE); URINE KETONE NEGATIVE (NEGATIVE)
[2019-04-27 21:12] LABS: URINE LEUK ESTERASE NEGATIVE (NEGATIVE); URINE NITRITE NEGATIVE (NEGATIVE); URINE PROTEIN NEGATIVE (NEGATIVE); URINE UROBILINOGEN 0.2 mg/dL (0.2-1.0)
[2019-04-27] MEDS: MELATONIN 5 MG TABLETS PO PRN (21:27)
[2019-04-27] MEDS: THIAMINE HCL 100 MG TABLET (FP) PO SCH (21:27)
[2019-04-28] MEDS ORDERED: METHADONE HCL 10 MG TABLET PO ONE ×3 (06:00→10:00)
[2019-04-28] MEDS ORDERED: METHADONE 40 MG, METHADONE 10 MG PO SCH (06:00)
[2019-04-28] MEDS ORDERED: METHADONE HCL 40 MG DISPERSABLE TABLET ONE (08:47)
[2019-04-28] MEDS ORDERED: METHADONE HCL 10 MG TABLET ONE (08:47)
[2019-04-28] MEDS ORDERED: METHADONE 40 MG, METHADONE 10 MG PO ONE ×2 (10:00)
[2019-04-28] MEDS: HYDROCHLOROTHIAZIDE 25 MG TABLET (FP) PO SCH (10:05)
[2019-04-28] MEDS: hydrOXYzine PAMOATE 50 MG CAPSULE (FP) PO PRN ×3 (10:05→21:21)
[2019-04-28] MEDS: LOSARTAN POTASSIUM 50 MG TABLET (FP) PO SCH (10:05)
[2019-04-28] MEDS: PRENATAL VITAMINS W/ FOLIC ACID TABLET (FP) PO SCH (10:05)
[2019-04-28] MEDS: NICOTINE 21 MG/24 HOURS TOPICAL PATCH TD SCH (10:06)
[2019-04-28] MEDS: NICOTINE POLACRILEX 2 MG GUM BC PRN ×3 (10:06→21:21)
[2019-04-28] MEDS: THIAMINE HCL 100 MG TABLET (FP) PO SCH (21:21)
[2019-04-28] MEDS: MELATONIN 5 MG TABLETS PO PRN (21:21)
[2019-04-29] MEDS ORDERED: METHADONE HCL 10 MG TABLET PO ONE ×2 (06:00→10:00)
[2019-04-29] MEDS ORDERED: METHADONE 40 MG, METHADONE 20 MG PO ONE ×2 (06:00→10:00)
[2019-04-29] MEDS: hydrOXYzine PAMOATE 50 MG CAPSULE (FP) PO PRN ×4 (06:16→19:24)
[2019-04-29] MEDS: NICOTINE POLACRILEX 2 MG GUM BC PRN ×3 (06:16→21:48)
[2019-04-29] MEDS ORDERED: METHADONE HCL 10 MG TABLET ONE (08:56)
[2019-04-29] MEDS ORDERED: METHADONE HCL 40 MG DISPERSABLE TABLET ONE (08:56)
[2019-04-29] MEDS: HYDROCHLOROTHIAZIDE 25 MG TABLET (FP) PO SCH (10:02)
[2019-04-29] MEDS: NICOTINE 21 MG/24 HOURS TOPICAL PATCH TD SCH (10:02)
[2019-04-29] MEDS: LOSARTAN POTASSIUM 50 MG TABLET (FP) PO SCH (10:02)
[2019-04-29] MEDS: PRENATAL VITAMINS W/ FOLIC ACID TABLET (FP) PO SCH (10:03)
[2019-04-29] MEDS: THIAMINE HCL 100 MG TABLET (FP) PO SCH (21:47)
[2019-04-29] MEDS: MELATONIN 5 MG TABLETS PO PRN (21:48)
[2019-04-30] MEDS: hydrOXYzine PAMOATE 50 MG CAPSULE (FP) PO PRN ×6 (00:28→21:30)
[2019-04-30] MEDS ORDERED: METHADONE 40 MG, METHADONE 30 MG PO ONE ×2 (06:00→10:00)
[2019-04-30] MEDS ORDERED: METHADONE HCL 10 MG TABLET PO ONE ×2 (06:00→10:00)
[2019-04-30] MEDS: NICOTINE POLACRILEX 2 MG GUM BC PRN ×5 (06:50→21:27)
[2019-04-30] MEDS ORDERED: METHADONE HCL 40 MG DISPERSABLE TABLET ONE (08:41)
[2019-04-30] MEDS ORDERED: METHADONE HCL 10 MG TABLET ONE (08:41)
[2019-04-30] MEDS: NICOTINE 21 MG/24 HOURS TOPICAL PATCH TD SCH (09:52)
[2019-04-30] MEDS: PRENATAL VITAMINS W/ FOLIC ACID TABLET (FP) PO SCH (09:53)
[2019-04-30] MEDS: LOSARTAN POTASSIUM 50 MG TABLET (FP) PO SCH (09:53)
[2019-04-30] MEDS: HYDROCHLOROTHIAZIDE 25 MG TABLET (FP) PO SCH (09:53)
[2019-04-30] MEDS: THIAMINE HCL 100 MG TABLET (FP) PO SCH (21:25)
[2019-04-30] MEDS: MELATONIN 5 MG TABLETS PO PRN (21:25)
[2019-05-01] MEDS ORDERED: METHADONE HCL 40 MG DISPERSABLE TABLET PO ONE ×2 (06:00→10:00)
[2019-05-01] MEDS: NICOTINE POLACRILEX 2 MG GUM BC PRN ×4 (06:11→21:20)
[2019-05-01] MEDS: hydrOXYzine PAMOATE 50 MG CAPSULE (FP) PO PRN ×4 (06:11→21:19)
[2019-05-01] MEDS: LOSARTAN POTASSIUM 50 MG TABLET (FP) PO SCH (10:02)
[2019-05-01] MEDS: PRENATAL VITAMINS W/ FOLIC ACID TABLET (FP) PO SCH (10:02)
[2019-05-01] MEDS: HYDROCHLOROTHIAZIDE 25 MG TABLET (FP) PO SCH (10:02)
[2019-05-01] MEDS: NICOTINE 21 MG/24 HOURS TOPICAL PATCH TD SCH (10:04)
[2019-05-01] MEDS: MELATONIN 5 MG TABLETS PO PRN (21:19)
[2019-05-01] MEDS: THIAMINE HCL 100 MG TABLET (FP) PO SCH (21:20)
[2019-05-02] MEDS ORDERED: METHADONE HCL 10 MG TABLET PO ONE (06:00)
[2019-05-02] MEDS ORDERED: METHADONE 80 MG, METHADONE 10 MG PO ONE ×2 (06:00→10:00)
[2019-05-02] MEDS: hydrOXYzine PAMOATE 50 MG CAPSULE (FP) PO PRN ×4 (07:41→23:06)
[2019-05-02] MEDS: LOSARTAN POTASSIUM 50 MG TABLET (FP) PO SCH (09:32)
[2019-05-02] MEDS: HYDROCHLOROTHIAZIDE 25 MG TABLET (FP) PO SCH (09:32)
[2019-05-02] MEDS: PRENATAL VITAMINS W/ FOLIC ACID TABLET (FP) PO SCH (09:32)
[2019-05-02] MEDS: NICOTINE 21 MG/24 HOURS TOPICAL PATCH TD SCH (09:32)
[2019-05-02] MEDS: NICOTINE POLACRILEX 2 MG GUM BC PRN ×3 (09:33→18:08)
[2019-05-02] MEDS ORDERED: METHADONE HCL 10 MG TABLET ONE (10:20)
[2019-05-02] MEDS ORDERED: METHADONE HCL 40 MG DISPERSABLE TABLET ONE (10:20)
[2019-05-02] MEDS: THIAMINE HCL 100 MG TABLET (FP) PO SCH (21:44)
[2019-05-02] MEDS: MELATONIN 5 MG TABLETS PO PRN (21:44)
[2019-05-03] MEDS ORDERED: METHADONE HCL 10 MG TABLET PO SCH (06:00)
[2019-05-03] MEDS ORDERED: METHADONE 80 MG, METHADONE 20 MG PO SCH (06:00)
[2019-05-03] MEDS: hydrOXYzine PAMOATE 50 MG CAPSULE (FP) PO PRN ×5 (06:17→23:21)
[2019-05-03] MEDS ORDERED: METHADONE HCL 40 MG DISPERSABLE TABLET ONE (08:37)
[2019-05-03] MEDS ORDERED: METHADONE HCL 10 MG TABLET ONE (08:37)
[2019-05-03] MEDS: PRENATAL VITAMINS W/ FOLIC ACID TABLET (FP) PO SCH (09:42)
[2019-05-03] MEDS: HYDROCHLOROTHIAZIDE 25 MG TABLET (FP) PO SCH (09:42)
[2019-05-03] MEDS: LOSARTAN POTASSIUM 50 MG TABLET (FP) PO SCH (09:42)
[2019-05-03] MEDS: NICOTINE POLACRILEX 2 MG GUM BC PRN ×2 (09:43→18:30)
[2019-05-03] MEDS: NICOTINE 21 MG/24 HOURS TOPICAL PATCH TD SCH (09:43)
[2019-05-03] MEDS ORDERED: METHADONE 80 MG, METHADONE 20 MG PO ONE (10:00)
--- NOTE | 2019-05-03 16:18 | CONSULT ---
[facility] Psychiatric Consult - Data Date of interview: 05/03/19 Admission source: [facility] Identifying data: Revisit to [facility] and direct admission to [address] for this 28 y/o male self-referred for rehabilitative care for preservation of sobriety and management of co-morbidities (substance use disorders : heroin, marijuana) + MDD and PTSD. Patient is single, a father of one, domiciled (lives with manjit), unemployed (lost his job as a [employer]on due to recent incarceration) and currently supported by fiancee + relatives. Substance Abuse History: Discussed in this session. Mr Sanon confirms data contained in the following segdameonent of [facility] report : Smoking history: Current every day smoker. Have you smoked in the past 12 months: Yes. Aproximately how many cigarettes per day: 10. Cigars Per Day: 0. Hx Chewing Tobacco Use: No. Initiated information on smoking cessation: Yes. 'Breaking Loose' booklet given: 04/26/19. - Substance & Tx. History. Hx Alcohol Use: No. Hx Substance Use: Yes. Substance Use Type: Heroin, Marijuana. Hx Substance Use Treatment: Yes (01/29/18 to 02/25/18 C). - Substances abused. Other. Other (specify ): METHADONE. Substance route: Oral. Frequency: Daily. Amount used: 100MG. Age of first use: 26. Date of last use: 04/12/19. Marijuana/Hashish. Substance route: Smoking. Frequency: Daily. Amount used: 6 BAGS. Age of first use: 14. Date of last use: 04/10/19. Heroin. Substance route: Inhalation. Frequency: Daily. Amount used: 2 bundles. Age of first use: 20. Date of last use: 11/14/17 Medical History: Remarkable for hypertension. Psychiatric History: Patient denies history of psychiatric hospitalizations. Mr Sanon states that he has been diagnosed with MDD and PTSD (no confirmation in [facility] records) which were managed with escitalopram (no records). Patient is known to the [facility] CDTP program in [place] (questionable attendance). He does report total and chronic non-adherence to psychotropic medications. Has dropped out of psychiatric OPD care. Patient denies history of suicide attempts. Physical/Sexual Abuse/Trauma History: No reported history of abuse. Additional Comment: Urine drug screen results: THC-Marijuana, MTD-Methadone, BZO -Benzodiazepines. Noted. Mental Status Exam - Mental Status Exam Alert and Oriented to: Time, Place, Person Cognitive Function: Good Patient Appearance: Well Groomed (tattoo on right forearm) Mood: Hopeful, Euthymic Affect: Appropriate, Normal Range Patient Behavior: Appropriate, Cooperative Speech Pattern: Clear, Appropriate (albanian fluent) Voice Loudness: Normal Thought Process: Intact, Goal Oriented Thought Disorder: Not Present Hallucinations: Denies Suicidal Ideation: Denies Homicidal Ideation: Denies Insight/Judgement: Fair Sleep: Poorly, Difficulty falling asleep (requests suvorexant) Appetite: Good Muscle strength/Tone: Normal Gait/Station: Normal Psychiatric Findings - Problem List ([place] 1, 2,3) (1) Opioid dependence on agonist therapy Current Visit: Yes Status: Chronic (2) Cannabis dependence Current Visit: Yes Status: Chronic (3) Nicotine dependence Current Visit: Yes Status: Chronic (4) Insomnia Current Visit: Yes Status: Chronic - Initial Treatment Plan Initial Treatment Plan: Records revisited ([facility]). Psychoeducation. Sleep hygiene. Measures for relapse prevention : discussed in this session. Motivational counseling. NA meetings. Groups. Psychotherapy : individual, cognitive, supportive. Insomnia is addressed with suvorexant 10 mg po hs prn ( specifically requested by the patient because of past experience of effectiveness during previous admission to [facility]). Side effects/benefits discussed with patient. Verbal consent granted to MD. Jeffery.
[2019-05-03] MEDS: MELATONIN 5 MG TABLETS PO PRN (21:22)
[2019-05-03] MEDS: THIAMINE HCL 100 MG TABLET (FP) PO SCH (21:22)
[2019-05-03] MEDS: SUVOREXANT 10 MG TABLET PO PRN (21:23)
[2019-05-04] MEDS: hydrOXYzine PAMOATE 50 MG CAPSULE (FP) PO PRN ×3 (06:55→22:48)
[2019-05-04] MEDS: NICOTINE POLACRILEX 2 MG GUM BC PRN ×2 (06:55→18:16)
[2019-05-04] MEDS ORDERED: METHADONE HCL 10 MG TABLET ONE (08:45)
[2019-05-04] MEDS ORDERED: METHADONE HCL 40 MG DISPERSABLE TABLET ONE (08:45)
[2019-05-04] MEDS: HYDROCHLOROTHIAZIDE 25 MG TABLET (FP) PO SCH (09:53)
[2019-05-04] MEDS: METHADONE 80 MG, METHADONE 20 MG PO SCH (09:53)
[2019-05-04] MEDS: PRENATAL VITAMINS W/ FOLIC ACID TABLET (FP) PO SCH (09:53)
[2019-05-04] MEDS: LOSARTAN POTASSIUM 50 MG TABLET (FP) PO SCH (09:53)
[2019-05-04] MEDS: NICOTINE 21 MG/24 HOURS TOPICAL PATCH TD SCH (09:53)
[2019-05-04] MEDS ORDERED: METHADONE HCL 10 MG TABLET PO SCH ×2 (10:00)
[2019-05-04] MEDS: THIAMINE HCL 100 MG TABLET (FP) PO SCH (21:37)
[2019-05-04] MEDS: SUVOREXANT 10 MG TABLET PO PRN (21:38)
[2019-05-04] MEDS: MELATONIN 5 MG TABLETS PO PRN (21:38)
[2019-05-05] MEDS: hydrOXYzine PAMOATE 50 MG CAPSULE (FP) PO PRN ×3 (06:12→18:48)
[2019-05-05] MEDS: NICOTINE POLACRILEX 2 MG GUM BC PRN ×2 (06:12→18:48)
[2019-05-05] MEDS ORDERED: METHADONE HCL 10 MG TABLET ONE (08:43)
[2019-05-05] MEDS ORDERED: METHADONE HCL 40 MG DISPERSABLE TABLET ONE (08:43)
[2019-05-05] MEDS: LOSARTAN POTASSIUM 50 MG TABLET (FP) PO SCH (09:28)
[2019-05-05] MEDS: NICOTINE 21 MG/24 HOURS TOPICAL PATCH TD SCH (09:28)
[2019-05-05] MEDS: HYDROCHLOROTHIAZIDE 25 MG TABLET (FP) PO SCH (09:28)
[2019-05-05] MEDS: PRENATAL VITAMINS W/ FOLIC ACID TABLET (FP) PO SCH (09:28)
[2019-05-05] MEDS: METHADONE 80 MG, METHADONE 20 MG PO SCH (09:28)
[2019-05-05] MEDS: THIAMINE HCL 100 MG TABLET (FP) PO SCH (21:24)
[2019-05-05] MEDS: MELATONIN 5 MG TABLETS PO PRN (21:25)
[2019-05-05] MEDS: SUVOREXANT 10 MG TABLET PO PRN (21:25)
[2019-05-06] MEDS: NICOTINE POLACRILEX 2 MG GUM BC PRN ×3 (06:48→14:23)
[2019-05-06] MEDS: hydrOXYzine PAMOATE 50 MG CAPSULE (FP) PO PRN ×3 (06:48→21:18)
[2019-05-06] MEDS ORDERED: PT OWN MED DRAWER 7, Y5N ONE ×2 (08:21→08:44)
[2019-05-06] MEDS ORDERED: METHADONE HCL 10 MG TABLET ONE (08:43)
[2019-05-06] MEDS ORDERED: METHADONE HCL 40 MG DISPERSABLE TABLET ONE (08:43)
[2019-05-06] MEDS: LOSARTAN POTASSIUM 50 MG TABLET (FP) PO SCH (09:43)
[2019-05-06] MEDS: PRENATAL VITAMINS W/ FOLIC ACID TABLET (FP) PO SCH (09:43)
[2019-05-06] MEDS: NICOTINE 21 MG/24 HOURS TOPICAL PATCH TD SCH (09:43)
[2019-05-06] MEDS: METHADONE 80 MG, METHADONE 20 MG PO SCH (09:43)
[2019-05-06] MEDS: HYDROCHLOROTHIAZIDE 25 MG TABLET (FP) PO SCH (09:43)
[2019-05-06] MEDS: MELATONIN 5 MG TABLETS PO PRN (21:18)
[2019-05-06] MEDS: SUVOREXANT 10 MG TABLET PO PRN (21:18)
[2019-05-06] MEDS: THIAMINE HCL 100 MG TABLET (FP) PO SCH (21:18)
[2019-05-07] MEDS ORDERED: METHADONE HCL 10 MG TABLET ONE (08:52)
[2019-05-07] MEDS ORDERED: METHADONE HCL 40 MG DISPERSABLE TABLET ONE (08:53)
[2019-05-07] MEDS: HYDROCHLOROTHIAZIDE 25 MG TABLET (FP) PO SCH (09:33)
[2019-05-07] MEDS: LOSARTAN POTASSIUM 50 MG TABLET (FP) PO SCH (09:33)
[2019-05-07] MEDS: NICOTINE 21 MG/24 HOURS TOPICAL PATCH TD SCH (09:33)
[2019-05-07] MEDS: PRENATAL VITAMINS W/ FOLIC ACID TABLET (FP) PO SCH (09:34)
[2019-05-07] MEDS: METHADONE 80 MG, METHADONE 20 MG PO SCH (09:34)
[2019-05-07] MEDS: hydrOXYzine PAMOATE 50 MG CAPSULE (FP) PO PRN ×3 (09:35→21:28)
[2019-05-07] MEDS: NICOTINE POLACRILEX 2 MG GUM BC PRN (13:44)
[2019-05-07] MEDS: SUVOREXANT 10 MG TABLET PO PRN (21:28)
[2019-05-07] MEDS: THIAMINE HCL 100 MG TABLET (FP) PO SCH (21:28)
[2019-05-07] MEDS: MELATONIN 5 MG TABLETS PO PRN (21:28)
[2019-05-08] MEDS ORDERED: METHADONE HCL 10 MG TABLET ONE (08:54)
[2019-05-08] MEDS ORDERED: METHADONE HCL 40 MG DISPERSABLE TABLET ONE (08:55)
[2019-05-08] MEDS: LOSARTAN POTASSIUM 50 MG TABLET (FP) PO SCH (09:01)
[2019-05-08] MEDS: PRENATAL VITAMINS W/ FOLIC ACID TABLET (FP) PO SCH (09:01)
[2019-05-08] MEDS: HYDROCHLOROTHIAZIDE 25 MG TABLET (FP) PO SCH (09:01)
[2019-05-08] MEDS: NICOTINE 21 MG/24 HOURS TOPICAL PATCH TD SCH (09:01)
[2019-05-08] MEDS: hydrOXYzine PAMOATE 50 MG CAPSULE (FP) PO PRN ×3 (09:02→21:36)
[2019-05-08] MEDS: METHADONE 80 MG, METHADONE 20 MG PO SCH (09:03)
[2019-05-08] MEDS: THIAMINE HCL 100 MG TABLET (FP) PO SCH (21:36)
[2019-05-08] MEDS: SUVOREXANT 10 MG TABLET PO PRN (21:36)
[2019-05-08] MEDS: MELATONIN 5 MG TABLETS PO PRN (21:37)
[2019-05-09] MEDS: hydrOXYzine PAMOATE 50 MG CAPSULE (FP) PO PRN ×3 (06:15→19:19)
[2019-05-09] MEDS ORDERED: METHADONE HCL 10 MG TABLET ONE (09:24)
[2019-05-09] MEDS ORDERED: METHADONE HCL 40 MG DISPERSABLE TABLET ONE (09:24)
[2019-05-09] MEDS: HYDROCHLOROTHIAZIDE 25 MG TABLET (FP) PO SCH (10:44)
[2019-05-09] MEDS: LOSARTAN POTASSIUM 50 MG TABLET (FP) PO SCH (10:44)
[2019-05-09] MEDS: METHADONE 80 MG, METHADONE 20 MG PO SCH (10:44)
[2019-05-09] MEDS: PRENATAL VITAMINS W/ FOLIC ACID TABLET (FP) PO SCH (10:44)
[2019-05-09] MEDS: NICOTINE 21 MG/24 HOURS TOPICAL PATCH TD SCH (10:46)
[2019-05-09] MEDS: THIAMINE HCL 100 MG TABLET (FP) PO SCH (21:51)
[2019-05-09] MEDS: MELATONIN 5 MG TABLETS PO PRN (21:53)
[2019-05-09] MEDS: SUVOREXANT 10 MG TABLET PO PRN (21:53)
[2019-05-10] MEDS: NICOTINE POLACRILEX 2 MG GUM BC PRN (06:55)
[2019-05-10] MEDS: hydrOXYzine PAMOATE 50 MG CAPSULE (FP) PO PRN ×3 (06:55→20:04)
[2019-05-10] MEDS ORDERED: METHADONE HCL 40 MG DISPERSABLE TABLET ONE (08:57)
[2019-05-10] MEDS ORDERED: METHADONE HCL 10 MG TABLET ONE (08:57)
[2019-05-10] MEDS: LOSARTAN POTASSIUM 50 MG TABLET (FP) PO SCH (10:08)
[2019-05-10] MEDS: PRENATAL VITAMINS W/ FOLIC ACID TABLET (FP) PO SCH (10:08)
[2019-05-10] MEDS: METHADONE 80 MG, METHADONE 20 MG PO SCH (10:08)
[2019-05-10] MEDS: HYDROCHLOROTHIAZIDE 25 MG TABLET (FP) PO SCH (10:08)
[2019-05-10] MEDS: NICOTINE 21 MG/24 HOURS TOPICAL PATCH TD SCH (10:09)
[2019-05-10] MEDS: THIAMINE HCL 100 MG TABLET (FP) PO SCH (21:24)
[2019-05-10] MEDS: MELATONIN 5 MG TABLETS PO PRN (21:24)
[2019-05-10] MEDS: SUVOREXANT 10 MG TABLET PO PRN (21:24)
[2019-05-11] MEDS ORDERED: METHADONE 80 MG, METHADONE 20 MG PO SCH (06:00)
[2019-05-11] MEDS ORDERED: METHADONE HCL 10 MG TABLET ONE (08:43)
[2019-05-11] MEDS ORDERED: METHADONE HCL 40 MG DISPERSABLE TABLET ONE (08:44)
[2019-05-11] MEDS: LOSARTAN POTASSIUM 50 MG TABLET (FP) PO SCH (09:53)
[2019-05-11] MEDS: PRENATAL VITAMINS W/ FOLIC ACID TABLET (FP) PO SCH (09:53)
[2019-05-11] MEDS: HYDROCHLOROTHIAZIDE 25 MG TABLET (FP) PO SCH (09:53)
[2019-05-11] MEDS: NICOTINE 21 MG/24 HOURS TOPICAL PATCH TD SCH (09:53)
[2019-05-11] MEDS: METHADONE 80 MG, METHADONE 20 MG PO SCH (09:53)
[2019-05-11] MEDS: hydrOXYzine PAMOATE 50 MG CAPSULE (FP) PO PRN ×4 (09:54→23:13)
[2019-05-11] MEDS: SUVOREXANT 10 MG TABLET PO PRN (21:25)
[2019-05-11] MEDS: MELATONIN 5 MG TABLETS PO PRN (21:25)
[2019-05-11] MEDS: THIAMINE HCL 100 MG TABLET (FP) PO SCH (21:25)
[2019-05-12] MEDS: hydrOXYzine PAMOATE 50 MG CAPSULE (FP) PO PRN ×3 (08:44→22:49)
[2019-05-12] MEDS ORDERED: METHADONE HCL 40 MG DISPERSABLE TABLET ONE (09:18)
[2019-05-12] MEDS ORDERED: METHADONE HCL 10 MG TABLET ONE (09:18)
[2019-05-12] MEDS: METHADONE 80 MG, METHADONE 20 MG PO SCH (10:01)
[2019-05-12] MEDS: NICOTINE 21 MG/24 HOURS TOPICAL PATCH TD SCH (10:01)
[2019-05-12] MEDS: PRENATAL VITAMINS W/ FOLIC ACID TABLET (FP) PO SCH (10:01)
[2019-05-12] MEDS: LOSARTAN POTASSIUM 50 MG TABLET (FP) PO SCH (10:01)
[2019-05-12] MEDS: HYDROCHLOROTHIAZIDE 25 MG TABLET (FP) PO SCH (10:01)
[2019-05-12] MEDS: THIAMINE HCL 100 MG TABLET (FP) PO SCH (21:30)
[2019-05-12] MEDS: MELATONIN 5 MG TABLETS PO PRN (21:32)
[2019-05-12] MEDS: SUVOREXANT 10 MG TABLET PO PRN (21:33)
[2019-05-12] MEDS ORDERED: SUVOREXANT 10 MG TABLET PO PRN (22:00)
[2019-05-13] MEDS: hydrOXYzine PAMOATE 50 MG CAPSULE (FP) PO PRN ×4 (06:31→21:26)
[2019-05-13] MEDS ORDERED: METHADONE HCL 10 MG TABLET ONE (09:08)
[2019-05-13] MEDS ORDERED: METHADONE HCL 40 MG DISPERSABLE TABLET ONE (09:09)
[2019-05-13] MEDS: LOSARTAN POTASSIUM 50 MG TABLET (FP) PO SCH (09:27)
[2019-05-13] MEDS: HYDROCHLOROTHIAZIDE 25 MG TABLET (FP) PO SCH (09:27)
[2019-05-13] MEDS: METHADONE 80 MG, METHADONE 20 MG PO SCH (09:27)
[2019-05-13] MEDS: PRENATAL VITAMINS W/ FOLIC ACID TABLET (FP) PO SCH (09:27)
[2019-05-13] MEDS: NICOTINE 21 MG/24 HOURS TOPICAL PATCH TD SCH (09:28)
[2019-05-13] MEDS: SUVOREXANT 10 MG TABLET PO PRN (21:26)
[2019-05-13] MEDS: THIAMINE HCL 100 MG TABLET (FP) PO SCH (21:27)
[2019-05-13] MEDS: MELATONIN 5 MG TABLETS PO PRN (21:27)
[2019-05-14] MEDS: hydrOXYzine PAMOATE 50 MG CAPSULE (FP) PO PRN ×4 (06:27→23:15)
[2019-05-14] MEDS ORDERED: METHADONE HCL 10 MG TABLET ONE (08:30)
[2019-05-14] MEDS ORDERED: METHADONE HCL 40 MG DISPERSABLE TABLET ONE (08:31)
[2019-05-14] MEDS: PRENATAL VITAMINS W/ FOLIC ACID TABLET (FP) PO SCH (10:03)
[2019-05-14] MEDS: HYDROCHLOROTHIAZIDE 25 MG TABLET (FP) PO SCH (10:03)
[2019-05-14] MEDS: METHADONE 80 MG, METHADONE 20 MG PO SCH (10:03)
[2019-05-14] MEDS: LOSARTAN POTASSIUM 50 MG TABLET (FP) PO SCH (10:03)
[2019-05-14] MEDS: NICOTINE 21 MG/24 HOURS TOPICAL PATCH TD SCH (10:03)
[2019-05-14] MEDS: SUVOREXANT 10 MG TABLET PO PRN (21:39)
[2019-05-14] MEDS: MELATONIN 5 MG TABLETS PO PRN (21:39)
[2019-05-14] MEDS: THIAMINE HCL 100 MG TABLET (FP) PO SCH (21:39)
[2019-05-15] MEDS: hydrOXYzine PAMOATE 50 MG CAPSULE (FP) PO PRN ×4 (06:06→21:22)
[2019-05-15] MEDS ORDERED: METHADONE HCL 40 MG DISPERSABLE TABLET ONE (08:33)
[2019-05-15] MEDS ORDERED: METHADONE HCL 10 MG TABLET ONE (08:33)
[2019-05-15] MEDS: NICOTINE 21 MG/24 HOURS TOPICAL PATCH TD SCH (10:08)
[2019-05-15] MEDS: HYDROCHLOROTHIAZIDE 25 MG TABLET (FP) PO SCH (10:43)
[2019-05-15] MEDS: PRENATAL VITAMINS W/ FOLIC ACID TABLET (FP) PO SCH (10:43)
[2019-05-15] MEDS: LOSARTAN POTASSIUM 50 MG TABLET (FP) PO SCH (10:43)
[2019-05-15] MEDS: METHADONE 80 MG, METHADONE 20 MG PO SCH (10:43)
[2019-05-15] MEDS: SUVOREXANT 10 MG TABLET PO PRN (21:22)
[2019-05-15] MEDS: THIAMINE HCL 100 MG TABLET (FP) PO SCH (21:22)
[2019-05-15] MEDS: MELATONIN 5 MG TABLETS PO PRN (21:22)
[2019-05-16] MEDS: hydrOXYzine PAMOATE 50 MG CAPSULE (FP) PO PRN ×3 (05:59→21:36)
[2019-05-16] MEDS ORDERED: METHADONE HCL 10 MG TABLET ONE (08:26)
[2019-05-16] MEDS ORDERED: METHADONE HCL 40 MG DISPERSABLE TABLET ONE (08:26)
[2019-05-16] MEDS: PRENATAL VITAMINS W/ FOLIC ACID TABLET (FP) PO SCH (10:22)
[2019-05-16] MEDS: HYDROCHLOROTHIAZIDE 25 MG TABLET (FP) PO SCH (10:22)
[2019-05-16] MEDS: LOSARTAN POTASSIUM 50 MG TABLET (FP) PO SCH (10:22)
[2019-05-16] MEDS: METHADONE 80 MG, METHADONE 20 MG PO SCH (10:23)
[2019-05-16] MEDS: NICOTINE 21 MG/24 HOURS TOPICAL PATCH TD SCH (10:26)
[2019-05-16] MEDS: THIAMINE HCL 100 MG TABLET (FP) PO SCH (21:36)
[2019-05-16] MEDS: MELATONIN 5 MG TABLETS PO PRN (21:36)
[2019-05-16] MEDS: SUVOREXANT 10 MG TABLET PO PRN (21:36)
[2019-05-17] MEDS: hydrOXYzine PAMOATE 50 MG CAPSULE (FP) PO PRN ×3 (06:35→16:04)
[2019-05-17] MEDS ORDERED: METHADONE HCL 10 MG TABLET ONE (08:50)
[2019-05-17] MEDS ORDERED: METHADONE HCL 40 MG DISPERSABLE TABLET ONE (08:51)
[2019-05-17] MEDS: METHADONE 80 MG, METHADONE 20 MG PO SCH (10:02)
[2019-05-17] MEDS: LOSARTAN POTASSIUM 50 MG TABLET (FP) PO SCH (10:03)
[2019-05-17] MEDS: PRENATAL VITAMINS W/ FOLIC ACID TABLET (FP) PO SCH (10:03)
[2019-05-17] MEDS: HYDROCHLOROTHIAZIDE 25 MG TABLET (FP) PO SCH (10:03)
[2019-05-17] MEDS: NICOTINE 21 MG/24 HOURS TOPICAL PATCH TD SCH (10:04)
[2019-05-17] MEDS: THIAMINE HCL 100 MG TABLET (FP) PO SCH (21:51)
[2019-05-17] MEDS: MELATONIN 5 MG TABLETS PO PRN (21:51)
[2019-05-17] MEDS: SUVOREXANT 10 MG TABLET PO PRN (21:54)
[2019-05-18] MEDS: hydrOXYzine PAMOATE 50 MG CAPSULE (FP) PO PRN ×4 (06:26→22:25)
[2019-05-18] MEDS: PRENATAL VITAMINS W/ FOLIC ACID TABLET (FP) PO SCH (10:07)
[2019-05-18] MEDS: HYDROCHLOROTHIAZIDE 25 MG TABLET (FP) PO SCH (10:07)
[2019-05-18] MEDS: NICOTINE 21 MG/24 HOURS TOPICAL PATCH TD SCH (10:07)
[2019-05-18] MEDS: LOSARTAN POTASSIUM 50 MG TABLET (FP) PO SCH (10:07)
[2019-05-18] MEDS: METHADONE 80 MG, METHADONE 20 MG PO SCH (12:11)
[2019-05-18] MEDS ORDERED: METHADONE HCL 40 MG DISPERSABLE TABLET ONE (12:11)
[2019-05-18] MEDS ORDERED: METHADONE HCL 10 MG TABLET ONE (12:11)
[2019-05-18] MEDS: THIAMINE HCL 100 MG TABLET (FP) PO SCH (21:11)
[2019-05-18] MEDS: MELATONIN 5 MG TABLETS PO PRN (21:11)
[2019-05-18] MEDS: SUVOREXANT 10 MG TABLET PO PRN (21:12)
[2019-05-19] MEDS: hydrOXYzine PAMOATE 50 MG CAPSULE (FP) PO PRN ×4 (07:18→22:15)
[2019-05-19] MEDS: PRENATAL VITAMINS W/ FOLIC ACID TABLET (FP) PO SCH (10:21)
[2019-05-19] MEDS: LOSARTAN POTASSIUM 50 MG TABLET (FP) PO SCH (10:22)
[2019-05-19] MEDS: NICOTINE 21 MG/24 HOURS TOPICAL PATCH TD SCH (10:22)
[2019-05-19] MEDS ORDERED: METHADONE HCL 10 MG TABLET ONE (10:22)
[2019-05-19] MEDS: HYDROCHLOROTHIAZIDE 25 MG TABLET (FP) PO SCH (10:22)
[2019-05-19] MEDS: METHADONE 80 MG, METHADONE 20 MG PO SCH (10:23)
[2019-05-19] MEDS ORDERED: METHADONE HCL 40 MG DISPERSABLE TABLET ONE (10:23)
[2019-05-19] MEDS: THIAMINE HCL 100 MG TABLET (FP) PO SCH (22:15)
[2019-05-19] MEDS: MELATONIN 5 MG TABLETS PO PRN (22:15)
[2019-05-19] MEDS: SUVOREXANT 10 MG TABLET PO PRN (22:16)
[2019-05-20] MEDS: hydrOXYzine PAMOATE 50 MG CAPSULE (FP) PO PRN ×4 (06:36→21:29)
[2019-05-20] MEDS ORDERED: METHADONE HCL 10 MG TABLET ONE (09:11)
[2019-05-20] MEDS ORDERED: METHADONE HCL 40 MG DISPERSABLE TABLET ONE (09:12)
[2019-05-20] MEDS: PRENATAL VITAMINS W/ FOLIC ACID TABLET (FP) PO SCH (10:08)
[2019-05-20] MEDS: HYDROCHLOROTHIAZIDE 25 MG TABLET (FP) PO SCH (10:08)
[2019-05-20] MEDS: LOSARTAN POTASSIUM 50 MG TABLET (FP) PO SCH (10:08)
[2019-05-20] MEDS: NICOTINE 21 MG/24 HOURS TOPICAL PATCH TD SCH (10:11)
[2019-05-20] MEDS: METHADONE 80 MG, METHADONE 20 MG PO SCH (11:08)
[2019-05-20] MEDS: MELATONIN 5 MG TABLETS PO PRN (21:28)
[2019-05-20] MEDS: SUVOREXANT 10 MG TABLET PO PRN (21:29)
[2019-05-20] MEDS: THIAMINE HCL 100 MG TABLET (FP) PO SCH (21:29)
[2019-05-21] MEDS: hydrOXYzine PAMOATE 50 MG CAPSULE (FP) PO PRN ×4 (06:15→21:55)
[2019-05-21] MEDS ORDERED: METHADONE HCL 40 MG DISPERSABLE TABLET ONE (09:23)
[2019-05-21] MEDS ORDERED: METHADONE HCL 10 MG TABLET ONE (09:23)
[2019-05-21] MEDS: METHADONE 80 MG, METHADONE 20 MG PO SCH (10:04)
[2019-05-21] MEDS: LOSARTAN POTASSIUM 50 MG TABLET (FP) PO SCH (10:04)
[2019-05-21] MEDS: HYDROCHLOROTHIAZIDE 25 MG TABLET (FP) PO SCH (10:04)
[2019-05-21] MEDS: PRENATAL VITAMINS W/ FOLIC ACID TABLET (FP) PO SCH (10:05)
[2019-05-21] MEDS: NICOTINE 21 MG/24 HOURS TOPICAL PATCH TD SCH (10:05)
[2019-05-21] MEDS: THIAMINE HCL 100 MG TABLET (FP) PO SCH (21:54)
[2019-05-21] MEDS: MELATONIN 5 MG TABLETS PO PRN (21:54)
[2019-05-21] MEDS: SUVOREXANT 10 MG TABLET PO PRN (21:56)
[2019-05-22] MEDS: hydrOXYzine PAMOATE 50 MG CAPSULE (FP) PO PRN ×4 (06:14→21:17)
[2019-05-22] MEDS: HYDROCHLOROTHIAZIDE 25 MG TABLET (FP) PO SCH (10:56)
[2019-05-22] MEDS: PRENATAL VITAMINS W/ FOLIC ACID TABLET (FP) PO SCH (10:56)
[2019-05-22] MEDS: LOSARTAN POTASSIUM 50 MG TABLET (FP) PO SCH (10:56)
[2019-05-22] MEDS: NICOTINE 21 MG/24 HOURS TOPICAL PATCH TD SCH (10:56)
[2019-05-22] MEDS ORDERED: METHADONE HCL 40 MG DISPERSABLE TABLET ONE (10:57)
[2019-05-22] MEDS ORDERED: METHADONE HCL 10 MG TABLET ONE (10:57)
[2019-05-22] MEDS: METHADONE 80 MG, METHADONE 20 MG PO SCH (10:58)
[2019-05-22] MEDS: THIAMINE HCL 100 MG TABLET (FP) PO SCH (21:15)
[2019-05-22] MEDS: MELATONIN 5 MG TABLETS PO PRN (21:17)
[2019-05-22] MEDS: SUVOREXANT 10 MG TABLET PO PRN (21:17)
[2019-05-23] MEDS: hydrOXYzine PAMOATE 50 MG CAPSULE (FP) PO PRN ×4 (06:07→19:36)
[2019-05-23] MEDS ORDERED: METHADONE HCL 10 MG TABLET ONE (09:01)
[2019-05-23] MEDS ORDERED: METHADONE HCL 40 MG DISPERSABLE TABLET ONE (09:01)
[2019-05-23] MEDS: METHADONE 80 MG, METHADONE 20 MG PO SCH (10:37)
[2019-05-23] MEDS: LOSARTAN POTASSIUM 50 MG TABLET (FP) PO SCH (10:39)
[2019-05-23] MEDS: HYDROCHLOROTHIAZIDE 25 MG TABLET (FP) PO SCH (10:39)
[2019-05-23] MEDS: PRENATAL VITAMINS W/ FOLIC ACID TABLET (FP) PO SCH (10:39)
[2019-05-23] MEDS: NICOTINE 21 MG/24 HOURS TOPICAL PATCH TD SCH (10:39)
[2019-05-23] MEDS: MELATONIN 5 MG TABLETS PO PRN (22:26)
[2019-05-23] MEDS: THIAMINE HCL 100 MG TABLET (FP) PO SCH (22:26)
[2019-05-23] MEDS: SUVOREXANT 10 MG TABLET PO PRN (22:28)
[2019-05-24] MEDS: hydrOXYzine PAMOATE 50 MG CAPSULE (FP) PO PRN (06:09)
[2019-05-24 07:11] VITALS: BP 130/66; PULSE 73; TEMP 97.8
== END 2019-05-24 06:40 | disposition home or self-care (01) | DRG 772 ==
LOC: YASAS 08:59 → Y3W 11:17
PROVIDERS: ADMIT Neuromusculoskeletal Medicine & OMM; ATTEND Neuromusculoskeletal Medicine & OMM
PROC: HZ42ZZZ Group Counseling for Substance Abuse Treatment, Cognitive-Behavioral (ICD-10-PCS; principal; 2019-04-26)
DX: F11.20 Opioid dependence, uncomplicated (principal); F12.20 Cannabis dependence, uncomplicated; F17.210 Nicotine dependence, cigarettes, uncomplicated; F41.9 Anxiety disorder, unspecified; I10 Essential (primary) hypertension; G47.00 Insomnia, unspecified; R63.4 Abnormal weight loss; Z91.013 Allergy to seafood
CPT/HCPCS: 36415; 80053; 81003; 85027; 86593